=== PATIENT | male | born 1950 | race Caucasian/White ===

== ENCOUNTER 2021-11-22 11:29 | Inpatient (IN) ==
[2021-11-22] MEDS ORDERED: MoRPHine SULFATE 4 MG/ML 1 ML CARP\\VIAL IV PRN (11:43)
[2021-11-22] MEDS ORDERED: MoRPHine SULFATE 4 MG/ML 1 ML CARP\\VIAL IV STA (11:43)
[2021-11-22] MEDS ORDERED: ONDANSETRON INJ 2 MG/ML 2 ML VIAL IV STA (11:43)
[2021-11-22] MEDS ORDERED: SODIUM CHLORIDE 0.9% 500 ML IV STA (11:43)
--- NOTE | 2021-11-22 11:52 | Emergency Department Note ---
Impression & Plan Intertrochanteric fracture of right femur, Fall, Head injury ED Provider Note NAME: ANDRES MAC AGE: 71 SEX: M : 1950 ARRIVES VIA: Ambulance INFORMANT: Patient, EMS ED PROVIDER(S): Haim Bean DO CHIEF COMPLAINT: Hip pain HPI: The patient is a 71-year-old male who presented to the emergency department for an evaluation of hip pain. The patient states that he fell while going down his basement stairs. He landed onto his right side. He also states he struck the right side of his head. He denies having any loss of consciousness but does complain of a mild headache. He denies having any chest pain or difficulty breathing. He denies having any back pain. He was unable to stand and called 911 and presented to the emergency department via ambulance. He states the pain is moderate to severe especially with any movement of the right leg. He is never injured this hip before. He arrived via BLS. ROS: See above HPI for pertinent positives & negatives. A total of 10 systems reviewed and were otherwise negative. PAST MEDICAL HISTORY: See Below PAST SURGICAL HISTORY: See Below FAMILY HISTORY: See Below SOCIAL HISTORY: See Below HOME MEDICATIONS: See Below ALLERGIES: See Below VITALS: See Below PHYSICAL EXAMINATION: GENERAL: Patient is awake and alert. He is very anxious appearing and appears to be uncomfortable. EYES: The conjunctivae are clear. The pupils are round and reactive. EARS, NOSE, MOUTH AND THROAT: The nose is without any evidence of any deformity. Mucous membranes are moist. Tongue is midline. NECK: The neck is nontender and supple. RESPIRATORY: Normal respiratory effort is noted there is no evidence of wheezing rhonchi or rales CARDIOVASCULAR: Regular rate and rhythm noted there no murmurs rubs or gallops normal S1 normal S2. GASTROINTESTINAL: The abdomen is soft. Abdomen is nontender. BACK: No midline tenderness was appreciated. MUSCULOSKELETAL/EXTREMITIES: The right lower extremity is shortened slightly. The patient has severe pain with any range of motion testing of the right hip. There is no tenderness over the left lower extremity or the right knee or right ankle. SKIN: Skin is warm and dry. Pulses are symmetric in both feet. NEUROLOGIC: Patient is awake alert and oriented x3. MEDICAL DECISION MAKING: Patient is a 71-year-old male who presented to the emergency department for an evaluation after fall. The patient fell striking his right hip. The patient was able to stand. The patient also struck his head. I discussed the patient's laboratory and radiographic studies with him. He was found to have signs of an intertrochanteric right hip fracture. The patient also was treated with IV pain medication in the emergency department. He was reevaluated multiple times. I discussed the patient's condition with the on-call [facility] group. They have agreed to evaluate the patient in the emergency department for further management and disposition. Triage Nursing notes reviewed. Prior medical records reviewed Vital Signs: reviewed and remarkable for no significant abnormalities Differential diagnosis: Fracture, dislocation, contusion, intra-abdominal, pneumothorax, intrathoracic, intracranial, neurologic, compartment syndrome, rhabdomyolysis, as well as other pathologies. ER treatment provided: See below Diagnostics interpreted by me: ECG: EKG was obtained in the emergency department. My interpretation is sinus bradycardia 53 bpm. There is no ectopy. There was no acute ST segment abnormalities noted. This was compared to a tracing from November 27, 2011. No changes were noted. Cardiac Monitoring: An order was placed for continuous cardiac monitoring. The monitor shows a rate of 57 bpm with sinus bradycardia. Laboratory studies: As stated above and show below. Imaging studies: See below Consultation(s): I discussed this case with Nanette who was on site wastewater systems technician for the [facility] group Past Med/Surg History Medical History Abnormal CT scan, chest (11/25/11) Anxiety Bullous pemphigoid Chest pain Dyslipidemia Essential hypertension Focal glomerular sclerosis (Unknown) "Followed by Dr. Aguilar. " On 11/25/11 09:33 Moe Conklin wrote "Followed by Dr. Aguilar. " GERD (gastroesophageal reflux disease) Preproliferative diabetic retinopathy Surgical History Hx of colonoscopy Hx of toe surgery R great toe 2/2 to chain saw accident Family History Father Lung cancer Mother CHF (congestive heart failure) Social History Smoking Status: Current some day smoker Tobacco Type: Cigarettes and Pipe packs per day: 0.5; Years Smoked: 30; Smoking End Date: 06/2018 - quit cigarettes, still smokes cigars; Hx Alcohol Use: Yes Alcohol Intake Frequency: Monthly or Less Hx Substance Use: No Preferred Language: [place] Leonean Communication Ability: Effective marital status: Current Living Situation: Spouse Feels Safe at Home: Yes Allergies Allergies Allergy/AdvReac Type Severity Reaction Status Date / Time No Known Allergies Allergy Unverified 06/30/11 11:16 Home Meds Home Medications Medication Instructions Recorded Confirmed amlodipine 10 mg tablet 10 mg PO HS 11/22/21 11/22/21 metoprolol succinate 100 mg 100 mg PO HS 11/22/21 11/22/21 tablet,extended release 24 hr sertraline 100 mg tablet 200 mg PO HS 11/22/21 11/22/21 Results & Data (ED) Vital Signs Vital Signs - 24 hr 11/22/21 11:40 11/22/21 11:45 11/22/21 13:40 Temperature 36.6 C Temperature Source Oral Pulse Rate 53 L 51 L Pulse Rate [Apical] 57 L Pulse Rhythm Regular Respiratory Rate 18 14 17 Respiratory Effort / Characteristics Non-Labored Blood Pressure 149/72 H Blood Pressure [Left Arm] 139/101 H Blood Pressure Mean 97 Blood Pressure Mean [Left Arm] 113 Pulse Oximetry 95 95 92 Oxygen Delivery Method Room Air Room Air Room Air Sepsis Recent Fever Within 48 Hours No Sepsis New/Unexplained Change in Mental Status N/A Sepsis Action Taken by Nursing No Action Required 11/22/21 15:00 Temperature Temperature Source Pulse Rate Pulse Rate [Apical] 57 L Pulse Rhythm Respiratory Rate 18 Respiratory Effort / Characteristics Blood Pressure Blood Pressure [Left Arm] 133/64 Blood Pressure Mean Blood Pressure Mean [Left Arm] 87 Pulse Oximetry 93 Oxygen Delivery Method Sepsis Recent Fever Within 48 Hours Sepsis New/Unexplained Change in Mental Status Sepsis Action Taken by Residential Medications Current Medication List: was personally reviewed by me Laboratory Data Attestation: I reviewed the patient's lab results. Result diagrams: 11/22/21 11:46 11/22/21 11:46 Lab Results 11/22/21 11/22/21 11/22/21 Range/Units 11:46 11:46 11:46 WBC 17.02 H (4.8-10.8) K/ul RBC 4.75 (4.63-6.08) M/uL Hgb 14.6 (14.0-18.0) g/dl Hct 43.3 (40.1-51.0) % MCV 91.2 (80.0-100.0) fL MCH 30.7 (25.0-34.0) pg MCHC 33.7 (32.0-36.0) g/dL RDW Std Deviation 45.7 (36.4-46.3) fL RDW Coeff of Jennifer 13.5 (11.5-14.5) % Plt Count 253 (130-400) K/uL MPV 10.3 (9.4-12.4) fL Immature Gran % (Auto) 0.8 % Neut % (Auto) 77.8 % Lymph % (Auto) 9.6 % [place] % (Auto) 9.4 % Eos % (Auto) 1.5 % Baso % (Auto) 0.9 % Neut # (Auto) 13.24 H (1.4-6.5) K/uL Lymph # (Auto) 1.63 (1.2-3.4) K/uL [place] # (Auto) 1.60 H (0.24-0.82) K/uL Eos # (Auto) 0.25 (0-0.50) K/uL Baso # (Auto) 0.16 (0-0.2) K/uL Immature Gran # (Auto) 0.14 H (0.00-0.02) K/uL PT 10.9 (9.0-12.0) Seconds INR 1.0 (0.9-1.1) APTT 22.8 (21.0-31.0) Seconds PTT Ratio 0.8 Sodium 138 (136-145) mmol/L Potassium 4.7 (3.5-5.1) mmol/L Chloride 106 (98-107) mmol/L Carbon Dioxide 26 (21-32) mmol/L Anion Gap 6 (3-11) BUN 26 H (6-23) mg/dl Creatinine 1.46 H (0.6-1.4) mg/dl Est Cr Clr Drug Dosing 59.9 ml/min Est GFR ( Amer) 55.7 ml/min Est GFR (Non-Af Amer) 48.0 ml/min BUN/Creatinine Ratio 17.8 (10-20) Glucose 110 H (70-99(Fasting)) mg/dl Calcium 9.2 (8.5-10.1) mg/dl Total Bilirubin 0.6 (0.2-1.0) mg/dl AST 17 (13-39) U/L ALT 17 (7-52) U/L Alkaline Phosphatase 90 (34-104) U/L Troponin I High Sens 3.7 (0-20) pg/ml Total Protein 8.0 (6.0-8.3) gm/dl Albumin 4.3 (3.4-5.0) gm/dl Globulin 3.7 (2.5-4.0) gm/dl Albumin/Globulin Ratio 1.2 (0.9-2) Lipase 42 (11-82) U/L SARS-CoV-2, RNA, NAAT (NEGATIVE) 11/22/21 Range/Units 13:55 WBC (4.8-10.8) K/ul RBC (4.63-6.08) M/uL Hgb (14.0-18.0) g/dl Hct (40.1-51.0) % MCV (80.0-100.0) fL MCH (25.0-34.0) pg MCHC (32.0-36.0) g/dL RDW Std Deviation (36.4-46.3) fL RDW Coeff of Jennifer (11.5-14.5) % Plt Count (130-400) K/uL MPV (9.4-12.4) fL Immature Gran % (Auto) % Neut % (Auto) % Lymph % (Auto) % [place] % (Auto) % Eos % (Auto) % Baso % (Auto) % Neut # (Auto) (1.4-6.5) K/uL Lymph # (Auto) (1.2-3.4) K/uL [place] # (Auto) (0.24-0.82) K/uL Eos # (Auto) (0-0.50) K/uL Baso # (Auto) (0-0.2) K/uL Immature Gran # (Auto) (0.00-0.02) K/uL PT (9.0-12.0) Seconds INR (0.9-1.1) APTT (21.0-31.0) Seconds PTT Ratio Sodium (136-145) mmol/L Potassium (3.5-5.1) mmol/L Chloride (98-107) mmol/L Carbon Dioxide (21-32) mmol/L Anion Gap (3-11) BUN (6-23) mg/dl Creatinine (0.6-1.4) mg/dl Est Cr Clr Drug Dosing ml/min Est GFR ( Amer) ml/min Est GFR (Non-Af Amer) ml/min BUN/Creatinine Ratio (10-20) Glucose (70-99(Fasting)) mg/dl Calcium (8.5-10.1) mg/dl Total Bilirubin (0.2-1.0) mg/dl AST (13-39) U/L ALT (7-52) U/L Alkaline Phosphatase (34-104) U/L Troponin I High Sens (0-20) pg/ml Total Protein (6.0-8.3) gm/dl Albumin (3.4-5.0) gm/dl Globulin (2.5-4.0) gm/dl Albumin/Globulin Ratio (0.9-2) Lipase (11-82) U/L SARS-CoV-2, RNA, NAAT NEGATIVE (NEGATIVE) Administered Medications Sodium Chloride (Nss 1000ml) 1,000 mls @ 100 mls/hr IV .Q10H XAVIER Stop: 11/23/21 00:59 Last Admin: 11/22/21 15:45 Dose: 100 mls/hr Documented By: ML Morphine Sulfate (Morphine Sulfate 4 Mg/Ml 1 Ml Carp\\Vial) 4 mg IV Q30M PRN PRN Reason: Pain Stop: 12/06/21 11:42 Last Admin: 11/22/21 12:32 Dose: 4 mg Documented By: ML Discontinued Medications Sodium Chloride (Nss) 500 mls @ 999 mls/hr IV .Q31M STA Stop: 11/22/21 12:13 Last Infusion: 11/22/21 12:29 Dose: 0 mls/hr Documented By: Admin: 11/22/21 11:57 Dose: 999 mls/hr Documented By: ML Acetaminophen (Ofirmev) 1,000 mg in 100 mls @ 400 mls/hr IV NOW STA Stop: 11/22/21 14:46 Last Infusion: 11/22/21 14:56 Dose: 0 mls/hr Documented By: Admin: 11/22/21 14:41 Dose: 400 mls/hr Documented By: ML Morphine Sulfate (Morphine Sulfate 4 Mg/Ml 1 Ml Carp\\Vial) 4 mg IV NOW STA Stop: 11/22/21 11:44 Last Admin: 11/22/21 11:58 Dose: 4 mg Documented By: ML Ondansetron HCl (Ondansetron Inj 2 Mg/Ml 2 Ml Vial) 4 mg IV NOW STA Stop: 11/22/21 11:44 Last Admin: 11/22/21 11:57 Dose: 4 mg Documented By: ML Imaging Data Radiologist's Impression: Cervical Spine CT 11/22/21 11:[address] DOSE: 661.61 mGycm HISTORY: Fall. Neck pain. TECHNIQUE: Multiaxial CT images of the cervical spine were performed and reformatted in the sagittal and coronal plane without the use of contrast. A dose lowering technique was utilized adhering to the principles of ALARA. COMPARISON: Cervical spine CT 11/26/2011. FINDINGS: No fractures. No subluxation. Prevertebral soft tissues and the C1-C2 interval are intact. No pneumothorax. Severe degenerative disc disease from C4 through C7. IMPRESSION: No fractures within the cervical spine. ACT 112: Negative or not required by law. Electronically signed by: Arthur Marshall M.D. 11/22/2021 12:40 PM Chest X-Ray 11/22/21 11:43 SINGLE VIEW CHEST CLINICAL HISTORY: Fall. Right hip fracture. Atypical chest pain. FINDINGS: An AP, portable, supine chest radiograph is compared to study dated 11/24/2011. The heart is mildly enlarged noting atherosclerotic calcification of the thoracic aorta. The pulmonary vasculature is noncongested. There is mild bibasilar scarring/atelectasis. No airspace consolidation or large pleural effusion is identified. No pneumothorax is seen. The skeletal structures are osteopenic. The bony thorax is grossly intact. IMPRESSION: Mild cardiomegaly with no acute cardiopulmonary abnormality identif ied. ACT 112: Negative or not required by law. Electronically signed by: Tio Hunt M.D. 11/22/2021 1:[address] 11/22/21 11:43 CT head/brain wo con CLINICAL HISTORY: 71 years-old Male with fall. Acute head trauma status post fall TECHNIQUE: Multiple axial CT images of the head were obtained without contrast. A dose lowering technique was utilized adhering to the principles of ALARA. CT DOSE: 823.94 mGycm COMPARISON: CT cervical spine of same day, head CT 06/30/2011 FINDINGS: No acute intracranial hemorrhage, midline shift, intracranial mass, hydrocepha radha, territorial ischemia or abnormal extra-axial collection. Mild involutional changes. Senescent calcifications of the basal ganglia. The calvarium is intact. Trace right mastoid effusion. Left mastoid air cells are clear. Moderate mucosal thickening of the ethmoid air cells with mild mucosal thickening of the right maxillary sinus. Unremarkable soft tissues and orbits. IMPRESSION: No acute intracranial abnormality or calvarial fracture. ACT 112: Negative or not required by law. The above report was generated using voice recognition software. It may contain grammatical, syntax or spelling errors. Electronically signed by: Connor Sweet M.D. 11/22/2021 12:32 PM Hip/Pelvis X-Ray 11/22/21 11:43 XR hip RT 2V w pelvis HISTORY: 71 years-old Male fall acute pelvic pain status post fall COMPARISON: None TECHNIQUE: Supine AP view of the pelvis with 2 views of the right hip FINDINGS: Moderate osteoarthritis of the hips. Limited exam secondary to positioning. There is an acute intertrochanteric fracture of the right proximal femur with fracture displacement/separation measuring up to approximately 6 mm. No dislocation or avascular necrosis. IMPRESSION: Acute nondisplaced intertrochanteric fracture of the right femur. ACT 112: Negative or not required by law. The above report was generated using voice recognition software. It may contain grammatical, syntax or spelling errors. Electronically signed by: Connor Sweet M.D. 11/22/2021 1:51 PM Discharge Plan Visit Data Chief Complaint: Hip Pain Stated Complaint: RT. HIP/GROIN PAIN (MISSED LAST STEP) ED Provider: Haim Bean Discharge Problem: Intertrochanteric fracture of right femur, Fall, Head injury Patient Disposition: Being Evaluated by Hospitalist Forms Stand Alone Forms: [employer] Prescriptions Prescriptions: No Action metoprolol succinate 100 mg tablet extended release 24 hr 100 mg PO HS sertraline 100 mg tablet 200 mg PO HS amlodipine 10 mg tablet 10 mg PO HS Referrals Referrals: Silvia Kirk, [Outside Practitioners] -
[2021-11-22 11:59] LABS: Basophils # (auto) 0.16 K/uL (0-0.2); Basophils % (auto) 0.9 %; Eosinophils # (auto) 0.25 K/uL (0-0.50); Eosinophils % (auto) 1.5 %; Hematocrit (blood only) 43.3 % (40.1-51.0); Hemoglobin 14.6 g/dl (14.0-18.0); Immature Granulocytes # (auto) 0.14 K/uL (0.00-0.02); Immature Granulocytes % (auto) 0.8 %; Lymphocytes # (auto) 1.63 K/uL (1.2-3.4); Lymphocytes % (auto) 9.6 %; Mean Corpuscular Hemoglobin 30.7 pg (25.0-34.0); Mean Corpuscular Hgb Conc 33.7 g/dL (32.0-36.0); Mean Corpuscular Volume 91.2 fL (80.0-100.0); Mean Platelet Volume 10.3 fL (9.4-12.4); Monocytes % (auto) 9.4 %; Neutrophils # (auto) 13.24 K/uL (1.4-6.5); Neutrophils % (auto) 77.8 %; Platelet Count 253 K/uL (130-400); RDW Coefficient of Variation 13.5 % (11.5-14.5); RDW Standard Deviation 45.7 fL (36.4-46.3); Red Blood Count 4.75 M/uL (4.63-6.08); White Blood Count 17.02 K/ul (4.8-10.8)
[2021-11-22 12:12] LABS: Partial Thromboplastin Ratio 0.8; Partial Thromboplastin Time 22.8 Seconds (21.0-31.0); Prothrombin Time 10.9 Seconds (9.0-12.0)
[2021-11-22 12:23] LABS: Albumin Globulin Ratio 1.2 (0.9-2); Albumin Level 4.3 gm/dl (3.4-5.0); BUN Creatinine Ratio 17.8 (10-20); Bilirubin,Total 0.6 mg/dl (0.2-1.0); Calcium 9.2 mg/dl (8.5-10.1); Creatinine Clr Calc Pharmacy 59.9 ml/min; Est GFR (African American) 55.7 ml/min; Globulin 3.7 gm/dl (2.5-4.0); Potassium 4.7 mmol/L (3.5-5.1); Troponin I High Sensitivity 3.7 pg/ml (0-20)
--- NOTE | 2021-11-22 12:34 | CT Scan Report ---
CT head/brain wo con CLINICAL HISTORY: 71 years-old Male with fall. Acute head trauma status post fall TECHNIQUE: Multiple axial CT images of the head were obtained without contrast. A dose lowering tech nique was utilized adhering to the principles of ALARA. CT DOSE: 823.94 mGycm COMPARISON: CT cervical spine of same day, head CT 06/30/2011 FINDINGS: No acute intracranial hemorrhage, midline shift, intracranial mass, hydrocephalus, territorial ischem ia or abnormal extra-axial collection. Mild involutional changes. Senescent calcifications of the bas al ganglia. The calvarium is intact. Trace right mastoid effusion. Left mastoid air cells are clear. Moderate mu cosal thickening of the ethmoid air cells with mild mucosal thickening of the right maxillary sinus. Unremarkable soft tissues and orbits. IMPRESSION: No acute intracranial abnormality or calvarial fracture. ACT 112: Negative or not required by law. The above report was generated using voice recognition software. It may contain grammatical, syntax o r spelling errors. Electronically signed by: Connor Sewet M.D. 11/22/2021 12:32 PM
--- NOTE | 2021-11-22 12:41 | CT Scan Report ---
CERVICAL SPINE CT CT DOSE: 661.61 mGycm HISTORY: Fall. Neck pain. TECHNIQUE: Multiaxial CT images of the cervical spine were performed and reformatted in the sagittal and coronal plane without the use of contrast. A dose lowering technique was utilized adhering to th e principles of ALARA. COMPARISON: Cervical spine CT 11/26/2011. FINDINGS: No fractures. No subluxation. Prevertebral soft tissues and the C1-C2 interval are intact. No pneumothorax. Severe degenerative disc disease from C4 through C7. IMPRESSION: No fractures within the cervical spine. ACT 112: Negative or not required by law. Electronically signed by: Arthur Marshall M.D. 11/22/2021 12:40 PM
--- NOTE | 2021-11-22 13:54 | XRay Report ---
XR hip RT 2V w pelvis HISTORY: 71 years-old Male fall acute pelvic pain status post fall COMPARISON: None TECHNIQUE: Supine AP view of the pelvis with 2 views of the right hip FINDINGS: Moderate osteoarthritis of the hips. Limited exam secondary to positioning. There is an acute intertr ochanteric fracture of the right proximal femur with fracture displacement/separation measuring up to approximately 6 mm. No dislocation or avascular necrosis. IMPRESSION: Acute nondisplaced intertrochanteric fracture of the right femur. ACT 112: Negative or not required by law. The above report was generated using voice recognition software. It may contain grammatical, syntax o r spelling errors. Electronically signed by: Connor Sweet M.D. 11/22/2021 1:51 PM
--- NOTE | 2021-11-22 13:56 | XRay Report ---
SINGLE VIEW CHEST CLINICAL HISTORY: Fall. Right hip fracture. Atypical chest pain. FINDINGS: An AP, portable, supine chest radiograph is compared to study dated 11/24/2011. The heart is mildly enlarged noting atherosclerotic calcification of the thoracic aorta. The pulmonary vasculatur e is noncongested. There is mild bibasilar scarring/atelectasis. No airspace consolidation or large p leural effusion is identified. No pneumothorax is seen. The skeletal structures are osteopenic. The b taylor thorax is grossly intact. IMPRESSION: Mild cardiomegaly with no acute cardiopulmonary abnormality identified. ACT 112: Negative or not required by law. Electronically signed by: Tio Hunt M.D. 11/22/2021 1:55 PM
[2021-11-22] MEDS ORDERED: ACETAMINOPHEN 1,000 MG/100 ML VIAL IV STA (14:32)
--- NOTE | 2021-11-22 14:50 | History & Physical Report ---
Date of Service November 22, 2021 Assessment & Plan (1) Fall: (2) Intertrochanteric fracture of right femur: (3) Essential hypertension: (4) Focal glomerular sclerosis: Plan This is a 71-year-old male who has a significant past medical history of HTN, HLD, prediabetes, GERD, focal segmental clavicular sclerosis, CKD stage III, bullous pemphigus and anxiety who presents to ED after sustaining a fall at home. Hip/Pelvis Xray: IMPRESSION: Acute nondisplaced intertrochanteric fracture of the right femur. Mechanical Fall Intertrochanteric fx of R femur, nondisplaced, closed admit to med/surg consult [facility] - discussed with Chad Tanner PA-C keep NPO until surgical time decided bed rest SCDS IV morphine severe pain, oxy IR moderate pain pre op antibiotics ordered ekg reviewed, order CXR pt able to perform ~ 4 mets of activity no prior hx of CAD place on NSS 100cc/hr while NPO HTN bp controlled on amlodipine and metoprolol CKD 3 Focal Glomerular Sclerosis baseline cr 1.2-1.3 bun/cr 26 and 1.46 has not followed up with nephro in few years, appears pt follows with [facility] neph[facility] recommend regular follow up with nephro avoid nephrotoxic agents especially nsaids Pre DM last a1c 6.0 10/27/20 obtain a1c in a.m Anxiety continue zoloft Dvt ppx: SCDS for now until surgery timing decided, recommend initiate chemical prophylaxis when able Dispo: Med/surg PCP: Anibal Mckeon Full Code Pt was seen and examined in collaboration with Dr. Alvarez, please see addendum History of Present Illness Chief Complaint: Fell prior to arrival Primary Care Provider: Anibal Mckeon, DO This is a 71-year-old male who has a significant past medical history of HTN, HLD, prediabetes, GERD, focal segmental clavicular sclerosis, CKD stage III, bullous pemphigus and anxiety who presents to ED after sustaining a fall at home. Patient was going down his basement when he missed the last step and fell on his right side striking the back of his head. He was able to crawl back up the steps using his arms. Once he got to the top of the steps he was unable to get up and ambulate. He complains of significant right hip pain currently a 3 out of 10. Denies any syncopal event, presyncope, lightheadedness or dizziness preceding the event. He further denies any recent illness, fever, chills, sweats, lightheadedness, dizziness, chest pain, shortness of breath, nausea, vomiting or abdominal pain. He is able to ambulate a flight of steps without getting chest pain or short of breath at baseline. Significance he does have history of high blood pressure controlled on amlodipine and metoprolol. He also has history of prediabetes with last A1c being 6.0 on 10/27/2020. His is at bedside. In ER patient remained hemodynamically stable. He underwent hip and pelvic x-ray which revealed a closed right intertrochanteric nondisplaced femur fracture. He also underwent CT head and neck which was unrevealing. Lab work significant for leukocytosis at 17 K and BUN 26, creatinine 1.46. He did not eat anything today. He did have black coffee for breakfast around 7-8am. Allergies Allergy/AdvReac Type Severity Reaction Status Date / Time No Known Allergies Allergy Unverified 06/30/11 11:16 Home Medications Medication Instructions Recorded Confirmed Type amlodipine 10 mg tablet 10 mg PO HS 11/22/21 11/22/21 History metoprolol succinate 100 mg 100 mg PO HS 11/22/21 11/22/21 History tablet,extended release 24 hr sertraline 100 mg tablet 200 mg PO HS 11/22/21 11/22/21 History Past Med/Surg History Medical History Abnormal CT scan, chest (11/25/11) Anxiety Bullous pemphigoid Chest pain Dyslipidemia Essential hypertension Focal glomerular sclerosis (Unknown) "Followed by Dr. Aguilar. " On 11/25/11 09:33 Moe Conklin wrote "Followed by Dr. Aguilar. " GERD (gastroesophageal reflux disease) Preproliferative diabetic retinopathy Surgical History Hx of colonoscopy Hx of toe surgery R great toe 2/2 to chain saw accident Family History Father Lung cancer Mother CHF (congestive heart failure) Social History Smoking Status: Current some day smoker Tobacco Type: Cigarettes and Pipe packs per day: 0.5; Years Smoked: 30; Smoking End Date: 06/2018 - quit cigarettes, still smokes cigars; Hx Alcohol Use: Yes Alcohol Intake Frequency: Monthly or Less Hx Substance Use: No Preferred Language: Senegalese Communication Ability: Effective marital status: Current Living Situation: Spouse Feels Safe at Home: Yes Review of Systems Review of Systems: All systems reviewed & are unremarkable except as noted in HPI & below Physical Exam Physical Exam: Please refer to Dr. Alvarez addendum for physical exam findings Results & Data Results & Data ([facility]) Vital Signs (Past 12 Hours) Vital Signs Temp Pulse Pulse Resp BP BP Pulse Ox 11/22/21 13:40 57 L 17 139/101 H 92 11/22/21 11:45 51 L 14 95 11/22/21 11:40 36.6 C 53 L 18 149/72 H 95 O2 Del Method 11/22/21 13:40 Room Air 11/22/21 11:45 Room Air 11/22/21 11:40 Room Air Diagnostic Findings Cervical Spine CT 11/22/21 11:[address] DOSE: 661.61 mGycm HISTORY: Fall. Neck pain. TECHNIQUE: Multiaxial CT images of the cervical spine were performed and reformatted in the sagittal and coronal plane without the use of contrast. A dose lowering technique was utilized adhering to the principles of ALARA. COMPARISON: Cervical spine CT 11/26/2011. FINDINGS: No fractures. No subluxation. Prevertebral soft tissues and the C1-C2 interval are intact. No pneumothorax. Severe degenerative disc disease from C4 through C7. IMPRESSION: No fractures within the cervical spine. ACT 112: Negative or not required by law. Electronically signed by: Arthur Marshall M.D. 11/22/2021 12:40 PM Chest X-Ray 11/22/21 11:43 SINGLE VIEW CHEST CLINICAL HISTORY: Fall. Right hip fracture. Atypical chest pain. FINDINGS: An AP, portable, supine chest radiograph is compared to study dated 11/24/2011. The heart is mildly enlarged noting atherosclerotic calcification of the thoracic aorta. The pulmonary vasculature is noncongested. There is mild bibasilar scarring/atelectasis. No airspace consolidation or large pleural effusion is identified. No pneumothorax is seen. The skeletal structures are osteopenic. The bony thorax is grossly intact. IMPRESSION: Mild cardiomegaly with no acute cardiopulmonary abnormality identified. ACT 112: Negative or not required by law. Electronically signed by: Tio Hunt M.D. 11/22/2021 1:[address] 11/22/21 11:43 CT head/brain wo con CLINICAL HISTORY: 71 years-old Male with fall. Acute head trauma status post fall TECHNIQUE: Multiple axial CT images of the head were obtained without contrast. A dose lowering technique was utilized adhering to the principles of ALARA. CT DOSE: 823.94 mGycm COMPARISON: CT cervical spine of same day, head CT 06/30/2011 FINDINGS: No acute intracranial hemorrhage, midline shift, intracranial mass, hydrocephalus, territorial ischemia or abnormal extra-axial collection. Mild involutional changes. Senescent calcifications of the basal ganglia. The calvarium is intact. Trace right mastoid effusion. Left mastoid air cells are clear. Moderate mucosal thickening of the ethmoid air cells with mild mucosal thickening of the right maxillary sinus. Unremarkable soft tissues and orbits. IMPRESSION: No acute intracranial abnormality or calvarial fracture. ACT 112: Negative or not required by law. The above report was generated using voice recognition software. It may contain grammatical, syntax or spelling errors. Electronically signed by: Connor Sweet M.D. 11/22/2021 12:32 PM Hip/Pelvis X-Ray 11/22/21 11:43 XR hip RT 2V w pelvis HISTORY: 71 years-old Male fall acute pelvic pain status post fall COMPARISON: None TECHNIQUE: Supine AP view of the pelvis with 2 views of the right hip FINDINGS: Moderate osteoarthritis of the hips. Limited exam secondary to positioning. There is an acute intertrochanteric fracture of the right proximal femur with fracture displacement/separation measuring up to approximately 6 mm. No dislocation or avascular necrosis. IMPRESSION: Acute nondisplaced intertrochanteric fracture of the right femur. ACT 112: Negative or not required by law. The above report was generated using voice recognition software. It may contain grammatical, syntax or spelling errors. Electronically signed by: Connor Sweet M.D. 11/22/2021 1:51 PM Medications Administered Medication List Acetaminophen (Ofirmev) 1,000 mg in 100 mls @ 400 mls/hr IV NOW STA Stop: 11/22/21 14:46 Last Admin: 11/22/21 14:41 Dose: 400 mls/hr Documented By: ML Morphine Sulfate (Morphine Sulfate 4 Mg/Ml 1 Ml Carp\\Vial) 4 mg IV Q30M PRN PRN Reason: Pain Stop: 12/06/21 11:42 Last Admin: 11/22/21 12:32 Dose: 4 mg Documented By: ML Discontinued Medications Sodium Chloride (Nss) 500 mls @ 999 mls/hr IV .Q31M STA Stop: 11/22/21 12:13 Last Infusion: 11/22/21 12:29 Dose: 0 mls/hr Documented By: Admin: 11/22/21 11:57 Dose: 999 mls/hr Documented By: ML Morphine Sulfate (Morphine Sulfate 4 Mg/Ml 1 Ml CarpVial) 4 mg IV NOW STA Stop: 11/22/21 11:44 Last Admin: 11/22/21 11:58 Dose: 4 mg Documented By: ML Ondansetron HCl (Ondansetron Inj 2 Mg/Ml 2 Ml Vial) 4 mg IV NOW STA Stop: 11/22/21 11:44 Last Admin: 11/22/21 11:57 Dose: 4 mg Documented By: ML ECG Rate (beats per minute): 53 Rhythm: sinus bradycardia Additional Comments: qtc 453ms COVID-19 Results Results COVID-19 Adm Lab Results: RBC 4.75 M/uL (4.63-6.08) 11/22/21 WBC 17.02 K/ul (4.8-10.8) H 11/22/21 Hgb 14.6 g/dl (14.0-18.0) 11/22/21 Hct 43.3 % (40.1-51.0) 11/22/21 Plt Count 253 K/uL (130-400) 11/22/21 Neutrophils (%) (Auto) 77.8 % 11/22/21 Lymphocytes (%) (Auto) 9.6 % 11/22/21 Monocytes # (Auto) 1.60 K/uL (0.24-0.82) H 11/22/21 Eosinophils # (Auto) 0.25 K/uL (0-0.50) 11/22/21 Immature Granulocyte % (Auto) 0.8 % 11/22/21 Neutrophils # (Auto) 13.24 K/uL (1.4-6.5) H 11/22/21 Lymphocytes # (Auto) 1.63 K/uL (1.2-3.4) 11/22/21 Monocytes # (Auto) 1.60 K/uL (0.24-0.82) H 11/22/21 Eosinophils # (Auto) 0.25 K/uL (0-0.50) 11/22/21 Basophils # (Auto) 0.16 K/uL (0-0.2) 11/22/21 Immature Granulocyte # (Auto) 0.14 K/uL (0.00-0.02) H 11/22 Na 138 mmol/L (136-145) 11/22/21 K 4.7 mmol/L (3.5-5.1) 11/22/21 Cl 106 mmol/L (98-107) 11/22/21 CO2 26 mmol/L (21-32) 11/22/21 Anion Gap 6 (3-11) 11/22/21 BUN 26 mg/dl (6-23) H 11/22/21 Creatinine 1.46 mg/dl (0.6-1.4) H 11/22/21 BUN/Creatinine Ratio 17.8 (10-20) 11/22/21 Glucose Level 110 mg/dl (70-99(Fasting)) H 11/22/21 Ca 9.2 mg/dl (8.5-10.1) 11/22/21 Total Bilirubin 0.6 mg/dl (0.2-1.0) 11/22/21 AST/SGOT 17 U/L (13-39) 11/22/21 ALT/SGPT 17 U/L (7-52) 11/22/21 Alkaline Phosphatase 90 U/L (34-104) 11/22/21 Total Protein 8.0 gm/dl (6.0-8.3) 11/22/21 Albumin 4.3 gm/dl (3.4-5.0) 11/22/21 Globulin 3.7 gm/dl (2.5-4.0) 11/22/21 Albumin/Globulin Ratio 1.2 (0.9-2) 11/22/21 PTT 22.8 Seconds (21.0-31.0) 11/22/21 INR 1.0 (0.9-1.1) 11/22/21 SARS-CoV-2, RNA, NAAT NEGATIVE (NEGATIVE) 11/22/21 Chest X-Ray 11/22/21 Code Status & VTE Plan Code Status FULL CODE VTE Prophylaxis Plan VTE Prophylaxis will be ordered: Yes Supervising Physician Co-Signing Physician Notes Patient is a 71-year-old male with history of CKD, bullous pemphigus, hypertension, focal segmental glomerulosclerosis and other medical problems presents with history of mechanical fall missing a step while going down his basement. Patient admits to falling on the right side of his hip and hitting hi s head but denies any loss of consciousness. Patient states having right hip pain secondary to the fall. Please review HPI for complete details of presentation. Blood work showed WBC 17, BUN 26, creatinine 1.46, glucose 110 but otherwise within normal limits. Imaging studies reviewed, showed acute nondisplaced intertrochanteric fracture of the right femur. Physical Exam: Vitals signs as noted above General Appearance:Obese, no apparent distress Head: normocephalic, Atraumatic Eyes: normal inspection, EOMI Neck: supple, Trachea midline Respiratory/Chest: Normal breath sounds, CTA, No accessory muscle use Cardiovascular: S1, S2, No murmur, Bradycardia Abdomen/GI:Soft, Non tender, Bowel sounds present Extremities/Musculoskeletal:normal inspection, no edema, right lower extremity externally rotated, shortened, decreased range of movement secondary to pain, right hip mildly tender. Neurologic/Psych:AAOX3, grossly no focal neurological deficits Skin: normal color, warm Intertrochanteric fracture of right femur Mechanical fall Leukocytosis likely reactive Pain control Fall precautions Orthopedics consulted Bowel regimen to prevent constipation Monitor for postop anemia Prediabetes Focal glomerulosclerosis Obtain HbA1c Monitor renal function I personally reviewed the record. Patient is interviewed and examined at bedside. Patient's care is coordinated with Nanette Florez PA-C. Please refer to the documentation above for details of patient's presentation and for discussion of other issues.
[2021-11-22] MEDS ORDERED: SODIUM CHLORIDE 0.9% 1000ML 1,000 ML IV SCH (15:00)
--- NOTE | 2021-11-22 15:18 | Orthopedic Consultation ---
Date of Consultation November 22, 2021 Assessment & Plan (1) Intertrochanteric fracture of right femur: Patient's x-rays reviewed. Patient will require a right trochanteric femoral nailing. I have discussed this with the patient and his in detail. Plan for OR tomorrow afternoon. History of Present Illness Reason for Consultation: Right Intertrochanteric hip fracture History of Present Illness 71-year-old male with past medical history of HTN, HLD, prediabetes, GERD, focal segmental clavicular sclerosis, CKD stage III, bullous pemphigus states that he was going down some steps today. He ended up missing the last step and lost his balance. He fell onto his right side and had immediate pain in his right hip and groin. He had difficulty ambulating secondary to pain and he was brought to the emergency room. He was seen by the staff and x-rays were taken. It was found that he had a right intertrochanteric hip fracture. He was admitted by the [facility] service and we have been asked to take care of his hip fracture. Currently he is awake and alert. No other complaints than right hip pain at this time. Denies any shortness of breath, chest pain, l ightheadedness prior to or after the fall. Denies loss of consciousness at the time of the fall. Allergies Allergy/AdvReac Type Severity Reaction Status Date / Time No Known Allergies Allergy Unverified 06/30/11 11:16 Home Medications Medication Instructions Recorded Confirmed Type amlodipine 10 mg tablet 10 mg PO HS 11/22/21 11/22/21 History metoprolol succinate 100 mg 100 mg PO HS 11/22/21 11/22/21 History tablet,extended release 24 hr sertraline 100 mg tablet 200 mg PO HS 11/22/21 11/22/21 History Patient History Medical History Abnormal CT scan, chest (11/25/11) Anxiety Bullous pemphigoid Chest pain Dyslipidemia Essential hypertension Focal glomerular sclerosis (Unknown) "Followed by Dr. Aguilar. " On 11/25/11 09:33 Moe Conklin wrote "Followed by Dr. Aguilar. " GERD (gastroesophageal reflux disease) Preproliferative diabetic retinopathy Surgical History Hx of colonoscopy Hx of toe surgery R great toe 2/2 to chain saw accident Family History Father Lung cancer Mother CHF (congestive heart failure) Social History Smoking Status: Current some day smoker Tobacco Type: Cigarettes and Pipe packs per day: 0.5; Years Smoked: 30; Smoking End Date: 06/2018 - quit cigarettes, still smokes cigars; Do You Dip or Chew Tobacco: No; Hx Alcohol Use: Yes Alcohol type: beer Alcohol Intake Frequency: Monthly or Less Hx Substance Use: No Preferred Language: Citizen Of [place] Communication Ability: Effective 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 No acute distress, pleasant cooperative, alert and oriented x3. On examination, the patient is lying in bed. His right lower extremity is shortened and externally rotated compared to the left. No attempts were made to move the right hip secondary to fracture. Right knee is nontender on palpation and he denies pain at this time. He has good range of motion of his right ankle at this time without discomfort. Left lower extremity is unaffected and he has good range of motion of the left hip, knee, and ankle. Upper extremities are unaffected at this time. He is nontender at the shoulders, elbows, and wrists and range of motion is within normal limits. Distal pulses are equal bilaterally of the upper and lower extremities. There is no gross motor or sensory loss seen at this time. He denies any cervical, thoracic, low back pain. Results & Data ([facility]) Vital Signs (Past 12 Hours) Vital Signs Temp Pulse Pulse Resp BP BP Pulse Ox 11/22/21 15:00 57 L 18 133/64 93 11/22/21 13:40 57 L 17 139/101 H 92 11/22/21 11:45 51 L 14 95 11/22/21 11:40 36.6 C 53 L 18 149/72 H 95 O2 Del Method 11/22/21 15:00 11/22/21 13:40 Room Air 11/22/21 11:45 Room Air 11/22/21 11:40 Room Air Diagnostic Findings Patient:ANDRES MAC Admit Date:11/22/21 MR#:[id number] Address1:[address] [place], [place] [address]GEOVANNY Acct ID:[id number] Address2: [address] Date:1950 [facility] Zip:[place] [address] Age:71 Location:ED Sex:M Room/Bed: Att Phy: Diagnosis:RT. HIP/GROIN PAIN (MISSED LAST STEP) Sherrie Phy:Anibal Mckeon DO Service Date:11/22/21 [facility] Phy: Interpreting Phy:Connor SweetAdmit Phy: Ordering Phy:Haim Bean DO cc: ~ XR hip RT 2V w pelvis HISTORY: 71 years-old Male fall acute pelvic pain status post fall COMPARISON: None TECHNIQUE: Supine AP view of the pelvis with 2 views of the right hip FINDINGS: Moderate osteoarthritis of the hips. Limited exam secondary to positioning. There is an acute intertrochanteric fracture of the right proximal femur with fracture displacement/separation measuring up to approximately 6 mm. No dislocation or avascular necrosis. IMPRESSION: Acute nondisplaced intertrochanteric fracture of the right femur. ACT 112: Negative or not required by law. The above report was generated using voice recognition software. It may contain grammatical, syntax or spelling errors. Electronically signed by: Connor Sweet M.D. 11/22/2021 1:51 PM
[2021-11-22] MEDS ORDERED: MoRPHine SULFATE 2 MG/ML CARP IV PRN (17:04)
[2021-11-22] MEDS ORDERED: MAGNESIUM HYDROXIDE SUSP 30 ML UDC PO PRN (17:04)
[2021-11-22] MEDS ORDERED: ALUMINUM/MAGNESIUM SUSP 30 ML UDC PO PRN (17:04)
[2021-11-22] MEDS ORDERED: PROMETHAZINE HCL 12.5 MG in SODIUM CHLORIDE 0.9% 50 ML IV PRN (17:04)
[2021-11-22] MEDS ORDERED: bisacodyL 10 MG SUPP PR PRN (17:04)
[2021-11-22] MEDS ORDERED: NALOXONE HCL 0.4 MG/1 ML VIAL/CARP IV PRN (17:04)
[2021-11-22] MEDS ORDERED: POLYETHYLENE (MIRALAX) 17 GM PACK PO PRN (17:04)
--- NOTE | 2021-11-22 17:25 | Electrocardiogram Report ---
Test Reason : Blood Pressure : / mmHG Vent. Rate : 053 BPM Atrial Rate : 053 BPM P-R Int : 182 ms QRS Dur : 090 ms QT Int : 482 ms P-R-T Axes : 012 -14 018 degrees QTc Int : 452 ms Sinus bradycardia Otherwise normal ECG When compared with ECG of 27-NOV-2011 06:39, QT has lengthened Confirmed by Harry Liriano ([id number]) on 11/22/2021 5:25:21 PM Referred By: REFERRED SELF Confirmed By:Stanton Liriano
--- NOTE | 2021-11-22 17:43 | Anesthesiology Consultation ---
Date of Service November 22, 2021 Assessment & Plan Chart Review Chart Review: Acceptable Risk for Surgery Consults Requested none History Surgery Operation Date: 11/23/21 11:20 Proposed Procedures p Intramedullary Adal Femur - Christopher Neal DO Height/Weight Height: 5 ft 10 in Weight: 115.2 kg Allergies Allergy/AdvReac Type Severity Reaction Status Date / Time No Known Allergies Allergy Unverified 06/30/11 11:16 Medications Home Medications Medication Instructions Recorded Confirmed Last Taken amlodipine 10 mg tablet 10 mg PO HS 11/22/21 11/22/21 Unknown metoprolol succinate 100 mg 100 mg PO HS 11/22/21 11/22/21 Unknown tablet,extended release 24 hr sertraline 100 mg tablet 200 mg PO HS 11/22/21 11/22/21 Unknown Active Medications Generic Name Dose Route Start Last Admin Trade Name Freq PRN Reason Stop Dose Admin Sodium Chloride 1,000 mls @ 100 mls/hr 11/22/21 15:00 11/22/21 15:45 Nss 1000ml IV 11/23/21 00:59 100 mls/hr .Q10H XAVIER Administration Past Medical History Medical History Abnormal CT scan, chest (11/25/11) Anxiety Bullous pemphigoid Chest pain Dyslipidemia Essential hypertension Focal glomerular sclerosis (Unknown) "Followed by Dr. Aguilar. " On 11/25/11 09:33 Moe Conklin wrote "Followed by Dr. Aguliar. " GERD (gastroesophageal reflux disease) Preproliferative diabetic retinopathy Past Family History Family History Father Lung cancer Mother CHF (congestive heart failure) Past Surgical History Surgical History Hx of colonoscopy Hx of toe surgery R great toe 2/2 to chain saw accident Social History Smoking Status: Current some day smoker Smoking End Date: 06/2018 - quit cigarettes, still smokes cigars Hx Alcohol Use: Yes Hx Substance Use: No Physical Exam Vital Signs Last Vital Signs Temp 36.6 C 11/22/21 11:40 Pulse 55 L 11/22/21 16:34 Resp 20 11/22/21 16:34 BP 138/75 11/22/21 16:34 Pulse Ox 94 11/22/21 16:34 O2 Del Method 11/22/21 16:34 Testing Laboratory Results 11/22/21 11:46 11/22/21 11:46 PT 10.9 Seconds (9.0-12.0) 11/22/21 11:46 INR 1.0 (0.9-1.1) 11/22/21 11:46 APTT 22.8 Seconds (21.0-31.0) 11/22/21 11:46
[2021-11-22] MEDS: oxyCODONE HCL IR 5 MG TAB (IMMEDIATE RELEASE) PO PRN (21:51)
[2021-11-22] MEDS: DOCUSATE SODIUM/SENNA 50/8.6MG TAB PO SCH (21:53)
[2021-11-22] MEDS: METOPROLOL SUCC 50MG EXT REL TAB PO SCH (21:53)
[2021-11-22] MEDS: amLODIPine BESYLATE 5 MG TAB PO SCH (21:54)
[2021-11-22] MEDS: SERTRALINE HCL 100 MG TABLET PO SCH (21:54)
[2021-11-22] MEDS ORDERED: ACETAMINOPHEN 325 MG TAB PO PRN (22:30)
[2021-11-23] MEDS: oxyCODONE HCL IR 5 MG TAB (IMMEDIATE RELEASE) PO PRN (02:33)
[2021-11-23] MEDS ORDERED: ceFAZolin 2000MG 2,000 MG/15 ML SYR IV SCH (06:00)
[2021-11-23 07:36] LABS: Basophils # (auto) 0.07 K/uL (0-0.2); Basophils % (auto) 0.7 %; Eosinophils # (auto) 0.33 K/uL (0-0.50); Eosinophils % (auto) 3.2 %; Hemoglobin 12.5 g/dl (14.0-18.0); Immature Granulocytes # (auto) 0.06 K/uL (0.00-0.02); Immature Granulocytes % (auto) 0.6 %; Lymphocytes # (auto) 1.54 K/uL (1.2-3.4); Lymphocytes % (auto) 14.9 %; Mean Corpuscular Hemoglobin 30.4 pg (25.0-34.0); Mean Corpuscular Hgb Conc 32.9 g/dL (32.0-36.0); Mean Corpuscular Volume 92.5 fL (80.0-100.0); Mean Platelet Volume 10.4 fL (9.4-12.4); Monocytes # (auto) 1.23 K/uL (0.24-0.82); Monocytes % (auto) 11.9 %; Neutrophils # (auto) 7.09 K/uL (1.4-6.5); Neutrophils % (auto) 68.7 %; Platelet Count 198 K/uL (130-400); RDW Coefficient of Variation 13.7 % (11.5-14.5); RDW Standard Deviation 46.5 fL (36.4-46.3); Red Blood Count 4.11 M/uL (4.63-6.08); White Blood Count 10.32 K/ul (4.8-10.8)
[2021-11-23 07:57] LABS: Albumin Globulin Ratio 1.1 (0.9-2); Albumin Level 3.7 gm/dl (3.4-5.0); BUN Creatinine Ratio 20.5 (10-20); Bilirubin,Total 0.9 mg/dl (0.2-1.0); Calcium 8.5 mg/dl (8.5-10.1); Creatinine Clr Calc Pharmacy 71.6 ml/min; Est GFR (African American) 69.2 ml/min; Est GFR (Non-African American) 59.7 ml/min; Globulin 3.3 gm/dl (2.5-4.0); Potassium 4.3 mmol/L (3.5-5.1)
[2021-11-23 08:24] LABS: Estimated Average Glucose 117 mg/dl; Hemoglobin A1C 5.7 % (4.5-5.6)
[2021-11-23] MEDS: SODIUM CHLORIDE 0.9% 1000ML 1,000 ML IV SCH ×2 (12:49→23:13)
[2021-11-23] MEDS: MoRPHine SULFATE 4 MG/ML 1 ML CARP\\VIAL IV PRN (14:11)
--- NOTE | 2021-11-23 16:21 | Hospitalist Progress Note ---
Date of Service November 23, 2021 Assessment & Plan (1) Fall: (2) Intertrochanteric fracture of right femur: (3) Essential hypertension: (4) Focal glomerular sclerosis: Plan This is a 71-year-old male who has a significant past medical history of HTN, HLD, prediabetes, GERD, focal segmental clavicular sclerosis, CKD stage III, bullous pemphigus and anxiety who presents to ED after sustaining a fall at home. Hip/Pelvis Xray: IMPRESSION: Acute nondisplaced intertrochanteric fracture of the right femur. Schedule for hip repair with Dr. Neal today; keep NPO Bed rest, SCDS IV morphine severe pain, oxy IR moderate pain Pre op antibiotics ordered Continue NSS 100ml/hr while NPO HTN BP controlled on amlodipine and metoprolol CKD 3 Focal Glomerular Sclerosis baseline cr 1.2-1.3 bun/cr 26 and 1.46 has not followed up with nephro in few years, appears pt follows with [facility] nephro recommend regular follow up with nephro avoid nephrotoxic agents especially nsaids Pre DM last a1c 6.0 10/27/20 obtain a1c in a.m Anxiety continue zoloft Dvt ppx: SCDS for now until surgery timing decided, recommend initiate chemical prophylaxis when able Dispo: Med/surg PCP: Dr. Anibal Mckeon Full Code Pt was seen and examined in collaboration with Dr. Guadarrama, please see addendum Admission and Anticipated Discharge Date Admission Date: November 22, 2021 Supervising Physician Co-Signing Physician Notes Patient seen and examined by ia, care coordinated with Kami Bowles PA-C, please refer to her note above for further detail. Patient is currently resting in bed, in no acute distress. He is hard of hearing. Right lower extremity shortened externally rotated, tender to palpation in the hip area. Range of motion not assessed due to known hip fracture. Plan for OR later today. Patient is currently NPO. Denies any fevers, chills, chest pain, shortness of breath, abdominal pain, nausea vomiting. Confirms mechanical fall. MD Chiara Subjective Seen and examined in 354 bed 2. Resting comfortably, awaiting OR. Denies any pain at rest. No fever, chills, chest pain, shortness of breath, nausea, vomiting, abdominal pain, dysuria, diarrhea or constipation. Review of Systems Review of Systems: At least ten systems reviewed and negative except as noted in the HPI. Physical Exam Physical Exam: General Appearance:Obese, no apparent distress Head: normocephalic, Atraumatic Eyes: normal inspection, EOMI Neck: supple, Trachea midline Respiratory/Chest: Normal breath sounds, CTA, No accessory muscle use Cardiovascular: S1, S2, No murmur, Bradycardia Abdomen/GI:Soft, Non tender, Bowel sounds present Extremities/Musculoskeletal: normal inspection, no edema, right lower extremity externally rotated, shortened, decreased range of movement secondary to pain, right hip with mild TTP Neurologic/Psych:AAOX3, grossly no focal neurological deficits Skin: normal color, warm Results & Data Results & Data ([facility]) Vital Signs (Past 12 Hours) Vital Signs Temp Pulse Resp BP Pulse Ox O2 Del Method 11/23/21 15:47 36.7 C 58 L 16 134/64 92 Room Air 11/23/21 07:15 36.8 C 52 L 18 128/74 90 11/23/21 08:00 Room Air Laboratory Results Short CBC 11/23/21 Range/Units 07:01 WBC 10.32 (4.8-10.8) K/ul Hgb 12.5 L (14.0-18.0) g/dl Hct 38.0 L (40.1-51.0) % Plt Count 198 (130-400) K/uL BMP 11/23/21 07:01 Sodium 138 Potassium 4.3 Chloride 105 Carbon Dioxide 27 BUN 25 H Creatinine 1.22 Glucose 106 H Calcium 8.5 Liver Function 11/23/21 Range/Units 07:01 Total Bilirubin 0.9 (0.2-1.0) mg/dl AST 22 (13-39) U/L ALT 25 (7-52) U/L Alkaline Phosphatase 76 (34-104) U/L Albumin 3.7 (3.4-5.0) gm/dl Diagnostic Findings Cervical Spine CT 11/22/21 11:[address] DOSE: 661.61 mGycm HISTORY: Fall. Neck pain. TECHNIQUE: Multiaxial CT images of the cervical spine were performed and reformatted in the sagittal and coronal plane without the use of contrast. A dose lowering technique was utilized adhering to the principles of ALARA. COMPARISON: Cervical spine CT 11/26/2011. FINDINGS: No fractures. No subluxation. Prevertebral soft tissues and the C1-C2 interval are intact. No pneumothorax. Severe degenerative disc disease from C4 through C7. IMPRESSION: No fractures within the cervical spine. ACT 112: Negative or not required by law. Electronically signed by: Arthur Marshall M.D. 11/22/2021 12:40 PM Chest X-Ray 11/22/21 11:43 SINGLE VIEW CHEST CLINICAL HISTORY: Fall. Right hip fracture. Atypical chest pain. FINDINGS: An AP, portable, supine chest radiograph is compared to study dated 11/24/2011. The heart is mildly enlarged noting atherosclerotic calcification of the thoracic aorta. The pulmonary vasculature is noncongested. There is mild bibasilar scarring/atelectasis. No airspace consolidation or large pleural effusion is identified. No pneumothorax is seen. The skeletal structures are osteopenic. The bony thorax is grossly intact. IMPRESSION: Mild cardiomegaly with no acute cardiopulmonary abnormality identified. ACT 112: Negative or not required by law. Electronically signed by: Tio Hunt M.D. 11/22/2021 1:[address] 11/22/21 11:43 CT head/brain wo con CLINICAL HISTORY: 71 years-old Male with fall. Acute head trauma status post fall TECHNIQUE: Multiple axial CT images of the head were obtained without contrast. A dose lowering technique was utilized adhering to the principles of ALARA. CT DOSE: 823.94 mGycm COMPARISON: CT cervical spine of same day, head CT 06/30/2011 FINDINGS: No acute intracranial hemorrhage, midline shift, intracranial mass, hydrocephalus, territorial ischemia or abnormal extra-axial collection. Mild involutional changes. Senescent calcifications of the basal ganglia. The calvarium is intact. Trace right mastoid effusion. Left mastoid air cells are clear. Moderate mucosal thickening of the ethmoid air cells with mild mucosal thickening of the right maxillary sinus. Unremarkable soft tissues and orbits. IMPRESSION: No acute intracranial abnormality or calvarial fracture. ACT 112: Negative or not required by law. The above report was generated using voice recognition software. It may contain grammatical, syntax or spelling errors. Electronically signed by: Connor Sweet M.D. 11/22/2021 12:32 PM Hip/Pelvis X-Ray 11/22/21 11:43 XR hip RT 2V w pelvis HISTORY: 71 years-old Male fall acute pelvic pain status post fall COMPARISON: None TECHNIQUE: Supine AP view of the pelvis with 2 views of the right hip FINDINGS: Moderate osteoarthritis of the hips. Limited exam secondary to positioning. There is an acute intertrochanteric fracture of the right proximal femur with fracture displacement/separation measuring up to approximately 6 mm. No dislocation or avascular necrosis. IMPRESSION: Acute nondisplaced intertrochanteric fracture of the right femur. ACT 112: Negative or not required by law. The above report was generated using voice recognition software. It may contain grammatical, syntax or spelling errors. Electronically signed by: Connor Sweet M.D. 11/22/2021 1:51 PM (1) Fall Encounter type: initial encounter Qualified Code(s): W19.XXXA - Unspecified fall, initial encounter (2) Intertrochanteric fracture of right femur Encounter type: initial encounter Fracture alignment: displaced Fracture type: closed Qualified Code(s): S72.141A - Displaced intertrochanteric fracture of right femur, initial encounter for closed fracture
[2021-11-23] MEDS ORDERED: LIDOCAINE 2% 2 ML VIAL/AMP(20MG/ML) INFIL ONE (18:39)
[2021-11-23] MEDS ORDERED: PROPOFOL IV EMULSION 10 MG/ML 20 ML VIAL IV ONE (18:39)
[2021-11-23] MEDS ORDERED: ONDANSETRON INJ 2 MG/ML 2 ML VIAL ONE (18:39)
[2021-11-23] MEDS ORDERED: DEXAMETHASONE SOD INJ 4 MG/ML VIAL ONE (18:39)
[2021-11-23] MEDS ORDERED: fentaNYL citrate 100 MCG/2 ML VIAL ONE ×2 (18:39→21:05)
[2021-11-23] MEDS ORDERED: MIDAZOLAM HCL 1 MG/ML 2ML VIAL ONE (18:39)
--- NOTE | 2021-11-23 18:58 | History & Physical Bridge Note ---
Date of Service November 23, 2021 History & Physical Bridge Note I have examined the patient, reviewed the History & Physical and in the interval since the performance of the History & Physical I have noted the following changes of clinical significance: no changes noted
[2021-11-23] MEDS ORDERED: ONDANSETRON INJ 2 MG/ML 2 ML VIAL IV PRN (19:00)
[2021-11-23] MEDS ORDERED: ATROPINE SULFATE 0.1 MG/ML 10ML SYR IV PRN (19:00)
[2021-11-23] MEDS ORDERED: ePHEDrine sulfate 50 MG/ML AMP IV PRN (19:00)
[2021-11-23] MEDS ORDERED: BUPIVACAINE 0.5 % 5 MG/1 ML MPF 30ML VIAL ONE (19:17)
--- NOTE | 2021-11-23 20:49 | Fluoroscopy Report ---
FL hip RT 2-3V CLINICAL HISTORY: RT TROCH NAIL. Right hip fracture. COMPARISON STUDY: Right hip 11/22/2021. FLUOROSCOPY TIME: 46 seconds.. FINDINGS: 4 fluoroscopic spot images of the right hip demonstrate a right femoral intramedullary aimee within interlocking femoral neck pin transfixing the right intertrochanteric fracture. The hardware a ppears intact. Alignment is near-anatomic. IMPRESSION: Fluoroscopic assistance provided for internal fixation of a right intertrochanteric femor al fracture. ACT 112: Negative or not required by law. Electronically signed by: Arthur Marshall M.D. 11/23/2021 8:47 PM
--- NOTE | 2021-11-23 20:56 | Post Operative Brief Note ---
Immediate Post Op Note v1 Date of Surgery November 23, 2021 Pre & Post Diagnosis Operation Date: 11/23/21 09:20 Pre-Op Diagnosis: Displaced intertrochanteric fracture of right femur Post-Op Diagnosis: Displaced intertrochanteric fracture of right femur I identified the patient and participated in the time-out.: Yes Procedure Operation Date: 11/23/21 09:20 Actual Procedures p Open Reduction Internal Fixation Intertrochanteric Hip Fracture Right with Synthes 11 mm x 130 degree titanium cannulated trochanteric fixation nail 170 mm in length, 11 mm x 95 mm helical blade and a 5 mm x 38 mm locking screw (Right) - Christopher Neal DO Surgeon Christopher Neal DO Trailer Assembler Chad Tanner PA-C Estimated Blood Loss 40 Findings Consistent with Post-Op Diagnosis Anesthesia Type General Regional Complications none Disposition Accompanied Patient To Recovery: No
--- NOTE | 2021-11-23 21:00 | Anesthesiology Progress Note ---
Date of Service November 23, 2021 Anesthesia Post Procedure Vital Signs Vital Signs: Temp Pulse Pulse Resp BP Pulse Ox Pulse Ox 11/23/21 17:42 37.5 C 66 20 113/95 94 11/23/21 15:47 36.7 C 58 L 16 134/64 92 11/23/21 07:15 36.8 C 52 L 18 128/74 90 11/23/21 08:00 11/23/21 01:04 91 11/23/21 01:00 37.1 C 63 20 90 11/23/21 00:08 37.1 C 63 20 138/65 90 11/22/21 21:50 37.0 C 65 16 107/61 91 O2 Del Method O2 Del Method O2 Flow Rate 11/23/21 17:42 Nasal Cannula 2 11/23/21 15:47 Room Air 11/23/21 07:15 11/23/21 08:00 Room Air 11/23/21 01:04 Room Air 11/23/21 01:00 Room Air 11/23/21 00:08 Room Air 11/22/21 21:50 Room Air Pain Intensity Right Hip: Pain Intensity: 3 Transfer of Care Handoff Completed per policy Notes Mental Status: alert / awake / arousable Patient Amnestic to Procedure: Yes Nausea / Vomiting: adequately controlled Pain: adequately controlled Airway Patency, RR, SpO2: stable & adequate BP & HR: stable & adequate Hydration State: stable & adequate Anesthetic Complications: no major complications apparent
[2021-11-23] MEDS: fentaNYL citrate 100 MCG/2 ML VIAL IV PRN ×2 (21:07→21:19)
--- NOTE | 2021-11-23 22:06 | Operative Report (OR) ---
DATE OF PROCEDURE: 11/23/2021. PREOPERATIVE DIAGNOSIS: Right displaced intertrochanteric fracture of the hip. POSTOPERATIVE DIAGNOSIS: Right displaced intertrochanteric fracture of the hip. PROCEDURE: Right hip open reduction and internal fixation of displaced intertrochanteric fracture wi th a Synthes trochanteric fixation nail, 11 mm x 130 degree x 170 mm in length, 11 x 95 mm helical bl anirudh and 5 mm x 38 mm locking screw. SURGEON: Christopher Neal DO CHAIN MAKER: Chad Tanner PA-C who was present for patient positioning, sterile prep and drape, management of retractors and instruments. He was present through the critical portions of the case in cluding wound closure, application of sterile dressing and transport of the patient to recovery. ANESTHESIA: General, regional. SPECIMENS: None. DRAINS: None. COMPLICATIONS: None. BLOOD LOSS: 40 mL PERTINENT HISTORY: This is a 71-year-old gentleman who was at home in usual health, he missed a step , falling directly on his right hip. He had immediate pain and inability to ambulate. He was transp orted to [facility]. He was evaluated and radiographed, noted to have a displaced i ntertrochanteric right hip fracture. He was admitted to the hospitalist service. He was optimized f or surgery. Orthopedics was scheduled to consult. The patient was then scheduled for surgery as ind icated. All potential risks, benefits, complications, alternatives, rehab potential for incomplete relief of symptoms, need for further surgery, DVT, PE, , persistent pain, swelling, scarring, weakness, ne urovascular injury, wound complications, hardware failure, nonunion, malunion, bone fracture were dis cussed with the patient. The patient decided to proceed with procedure as indicated. PROCEDURE: The patient was transferred to the operative suite. The proper site was identified. The co nsent was reviewed, the patient was then administered sedation and spinal anesthetic. Once appropriat e, the patient then transferred to the fracture table where the lower extremity was placed in fractur e table traction and the nonoperative leg was placed in the well leg [place]. All bony prominences wer e properly padded and protected. The padded post was placed in the peroneal and the patient was posit ioned appropriately. Next the right leg was placed on traction and reduction of the fracture was perf ormed under fluoroscopic control. Next the operative hip was then sterilely prepped and draped in the usual fashion. Next a 10-blade scalpel incision was used to make an incision proximal to the greater trochanter. The incision was deep in the subcutaneous tissue and fascia and the tip of the greater t rochanter was then palpated followed by placement of a guide pin under fluoroscopic control driven in to the greater trochanter down to the level of the less trochanter. This was confirmed in AP and late ral projections followed by placement of the proximal reamer over the cannulated guide pin. Next the reamer was then removed using the soft tissue protector, which was also removed. Next the ball tip gu nancy aimee was placed into the proximal femur under fluoroscopic control confirmed with AP and lateral f luoroscope projections. Next the trochanteric nail was then passed over the guide aimee into the femur, the guide aimee was removed and then under fluoroscopic control appropriate level of the femoral nail was then placed in AP projections. Next the targeting device was then fixed to the driving handle and 10-blade scalpel incision was made in the lateral aspect of the thigh. Next the tissue protector and cannulated guide system was then passed into the soft tissue until it was securely fixed against a l ateral aspect of the femoral cortex. This was also confirmed under C-arm. Next the guide pin for the helical blade was driven into the lateral aspect of the femur confirming this with AP lateral project ions until the guide pin was in the center of the femoral neck and head approximately 5 mm from the s ubcortical bone of the femur. Next the helical blade was then measured and then the lateral cortex wa s then drilled with the cortex reamer followed by use of the triple reamer with the depth stop set at appropriate depth. In this case a 11 x 95 mm helical blade was then inserted over the cannulated hailey de aimee under fluoroscopic control. This was seated appropriately then traction was reduced from the l imb and the fracture was then gently compressed and then locked proximally with the flexible screwdri mark. Next the helical blade was then disengaged from its insertion handle, insertion handle was then removed and the guide pin was removed from the femoral neck and head. Next the lateral targeting arm was used to insert the distal locking screw. First a 10-blade scalpel incision was made in the latera l aspect of the thigh, captured drill sleeves were then tamped gently to the lateral aspect of the fe moral cortex then the locking screw hole was then drilled, measured and then an appropriate length sc rew was placed to lock the distal aspect of the nail. Next targeting sleeves were then removed. The i nsertion arm was then removed from the nail and final x-rays were obtained in AP and lateral projecti ons. All incisions were then copiously irrigated with sterile normal saline. The proximal gluteus fas stanley was then closed using interrupted #1 Vicryl, the dermis was closed using buried interrupted 2-0 V icryl sutures in all three incisions and the skin was then closed using skin ghislaine. A sterile compr essive dressing consisting of Xeroform gauze, sterile 4 x 4's and Tegaderm was applied. The patient w as then awakened and taken to recovery in stable condition. Job ID: [id number]
[2021-11-23] MEDS: amLODIPine BESYLATE 5 MG TAB PO SCH (23:08)
[2021-11-23] MEDS: METOPROLOL SUCC 50MG EXT REL TAB PO SCH (23:09)
[2021-11-23] MEDS: SERTRALINE HCL 100 MG TABLET PO SCH (23:10)
[2021-11-23] MEDS: DOCUSATE SODIUM/SENNA 50/8.6MG TAB PO SCH (23:10)
[2021-11-24] MEDS: oxyCODONE HCL IR 5 MG TAB (IMMEDIATE RELEASE) PO PRN ×3 (00:25→13:20)
[2021-11-24] MEDS: MoRPHine SULFATE 4 MG/ML 1 ML CARP\\VIAL IV PRN (02:42)
[2021-11-24 06:42] LABS: Hematocrit (blood only) 35.3 % (40.1-51.0); Hemoglobin 11.6 g/dl (14.0-18.0); Mean Corpuscular Hemoglobin 30.9 pg (25.0-34.0); Mean Corpuscular Hgb Conc 32.9 g/dL (32.0-36.0); Mean Corpuscular Volume 93.9 fL (80.0-100.0); Mean Platelet Volume 10.7 fL (9.4-12.4); Platelet Count 179 K/uL (130-400); RDW Coefficient of Variation 13.9 % (11.5-14.5); RDW Standard Deviation 47.8 fL (36.4-46.3); Red Blood Count 3.76 M/uL (4.63-6.08); White Blood Count 10.92 K/ul (4.8-10.8)
[2021-11-24 07:17] LABS: BUN Creatinine Ratio 21.4 (10-20); Calcium 8.1 mg/dl (8.5-10.1); Creatinine Clr Calc Pharmacy 74.7 ml/min; Est GFR (African American) 72.8 ml/min; Est GFR (Non-African American) 62.8 ml/min; Potassium 4.1 mmol/L (3.5-5.1)
--- NOTE | 2021-11-24 08:02 | Hospitalist Progress Note ---
Date of Service November 24, 2021 Assessment & Plan (1) Fall: (2) Intertrochanteric fracture of right femur: (3) Essential hypertension: (4) Focal glomerular sclerosis: Plan This is a 71-year-old male who has a significant past medical history of HTN, HLD, prediabetes, GERD, focal segmental clavicular sclerosis, CKD stage III, bullous pemphigus and anxiety who presents to ED after sustaining a fall at home. Hip/Pelvis Xray: IMPRESSION: Acute nondisplaced intertrochanteric fracture of the right femur. Orthopedics consulted. Impression: Right displaced intertrochanteric fracture of the hip. S/p Right hip open reduction and internal fixation of displaced intertrochanteric fracture - w/Dr. Neal on 11/23/2021 Bed rest, SCDS - discuss w/ ortho when chemoprophylaxis ok IV morphine severe pain, oxy IR moderate pain Periop op antibiotics given PT/OT per ortho Hypoxia - post op Currently on 2L of suppl. oxygen -Encourage incentive spirometry, try to wean off oxygen -Patient is a current smoker Acute blood loss anemia, post -op, dilutional pre-op Hgb 14.6, and 12.5 - dilutional now 11.6 - expected - no need for blood transfusion HTN BP controlled on amlodipine and metoprolol CKD 3 Focal Glomerular Sclerosis baseline cr 1.2-1.3 bun/cr 26 and 1.46 Current Cr 1.2 has not followed up with nephro in few years, appears pt follows with [facility] nephro recommend regular follow up with nephro avoid nephrotoxic agents especially nsaids Pre DM last a1c 6.0 10/27/20 Hgb a1c 5.7% Anxiety continue zoloft Dvt ppx: SCDS for now until surgery ok with chemical prophylaxis Dispo: Med/surg PCP: Dr. Anibal Mckeon Full Code Admission and Anticipated Discharge Date Admission Date: November 22, 2021 Subjective Patient seen in follow-up of R hip fracture, s/p mechanical fall. Status post ORIF last evening. Currently laying in bed, in no acute distress. He is using supplemental oxygen, usually he is not using oxygen. He is a smoker. Denies any pain at this time. No fever, chills, chest pain, shortness of breath, nausea, vomiting, abdominal pain, dysuria, diarrhea or constipation. Encouraged incentive spirometry. We will try to wean off oxygen. Review of Systems Review of Systems: All systems reviewed & are unremarkable except as noted in Subjective Physical Exam Physical Exam: General Appearance:Obese M, no apparent distress, on suppl. O2 2L Head: normocephalic, Atraumatic Eyes: normal inspection, EOMI Neck: supple, Trachea midline Respiratory/Chest: Normal breath sounds, CTA, No accessory muscle use, on 2L of suppl. O2 Cardiovascular: S1, S2, No murmur, Bradycardia Abdomen/GI:Soft, Non tender, Bowel sounds present Extremities/Musculoskeletal: normal inspection, no edema, right hip with mild TTP, clean surgical dressings applied Neurologic/Psych:AAOX3, answering which is appropriately, no facial symmetry. Hard of hearing. Skin: normal color, warm Results & Data Results & Data ([facility]) Vital Signs (Past 12 Hours) Vital Signs Temp Pulse Pulse Resp BP Pulse Ox O2 Del Method 11/23/21 22:30 Nasal Cannula 11/24/21 01:31 36.8 C 67 14 119/51 L 85 L Room Air 11/24/21 00:06 36.6 C 62 14 137/71 85 L Room Air 11/23/21 23:19 36.3 C L 62 14 133/78 94 Room Air 11/23/21 22:15 36.5 C 61 14 135/73 99 Room Air 11/23/21 22:00 62 14 131/69 98 Nasal Cannula 11/23/21 21:50 62 15 116/67 95 Nasal Cannula 11/23/21 21:40 36.4 C L 63 14 124/78 93 Nasal Cannula 11/23/21 21:30 64 17 116/82 93 Nasal Cannula 11/23/21 21:20 63 16 126/94 93 Oxymask 11/23/21 21:10 65 17 155/70 H 93 Oxymask 11/23/21 21:00 66 17 133/98 91 Oxymask 11/23/21 20:54 36.1 C L 64 16 134/76 96 Oxymask O2 Flow Rate 11/23/21 22:30 3 11/24/21 01:31 11/24/21 00:06 11/23/21 23:19 11/23/21 22:15 11/23/21 22:00 3 11/23/21 21:50 3 11/23/21 21:40 3 11/23/21 21:30 4 11/23/21 21:20 6 11/23/21 21:10 6 11/23/21 21:00 6 11/23/21 20:54 6 Laboratory Results 11/24/21 11/24/21 11/24/21 Range/Units 05:42 05:42 05:42 WBC 10.92 H (4.8-10.8) K/ul RBC 3.76 L (4.63-6.08) M/uL Hgb 11.6 L (14.0-18.0) g/dl Hct 35.3 L (40.1-51.0) % MCV 93.9 (80.0-100.0) fL MCH 30.9 (25.0-34.0) pg MCHC 32.9 (32.0-36.0) g/dL RDW Std Deviation 47.8 H (36.4-46.3) fL RDW Coeff of Jeninfer 13.9 (11.5-14.5) % Plt Count 179 (130-400) K/uL MPV 10.7 (9.4-12.4) fL Sodium 137 (136-145) mmol/L Potassium 4.1 (3.5-5.1) mmol/L Chloride 105 (98-107) mmol/L Carbon Dioxide 27 (21-32) mmol/L Anion Gap 5 (3-11) BUN 25 H (6-23) mg/dl Creatinine 1.17 (0.6-1.4) mg/dl Est Cr Clr Drug Dosing 74.7 ml/min Est GFR ( Amer) 72.8 ml/min Est GFR (Non-Af Amer) 62.8 ml/min BUN/Creatinine Ratio 21.4 H (10-20) Glucose 112 H (70-99(Fasting)) mg/dl Estimat Average Glucose mg/dl Hemoglobin A1c (4.5-5.6) % Calcium 8.1 L (8.5-10.1) mg/dl 25-OH Vitamin D Total 18.7 L (30-100) ng/ml 11/23/21 Range/Units 07:01 WBC (4.8-10.8) K/ul RBC (4.63-6.08) M/uL Hgb (14.0-18.0) g/dl Hct (40.1-51.0) % MCV (80.0-100.0) fL MCH (25.0-34.0) pg MCHC (32.0-36.0) g/dL RDW Std Deviation (36.4-46.3) fL RDW Coeff of Jennifer (11.5-14.5) % Plt Count (130-400) K/uL MPV (9.4-12.4) fL Sodium (136-145) mmol/L Potassium (3.5-5.1) mmol/L Chloride (98-107) mmol/L Carbon Dioxide (21-32) mmol/L Anion Gap (3-11) BUN (6-23) mg/dl Creatinine (0.6-1.4) mg/dl Est Cr Clr Drug Dosing ml/min Est GFR ( Amer) ml/min Est GFR (Non-Af Amer) ml/min BUN/Creatinine Ratio (10-20) Glucose (70-99(Fasting)) mg/dl Estimat Average Glucose 117 mg/dl Hemoglobin A1c 5.7 H (4.5-5.6) % Calcium (8.5-10.1) mg/dl 25-OH Vitamin D Total (30-100) ng/ml Medications Administered Current Inpatient Medications Al Hydrox/Mg Hydrox/Simethicone (Aluminum/Magnesium Susp 30 Ml Udc) 30 ml PO Q6H PRN PRN Reason: Dyspepsia Stop: 12/22/21 17:03 Amlodipine Besylate (Amlodipine Besylate 5 Mg Tab) 10 mg PO [facility] Stop: 12/22/21 20:59 Last Admin: 11/23/21 23:08 Dose: 10 mg Bisacodyl (Bisacodyl 10 Mg Supp) 10 mg [place] DAILY PRN PRN Reason: Constipation Stop: 12/22/21 17:03 Promethazine HCl 12.5 mg/ (Sodium Chloride) 50.5 mls @ 202 mls/hr IV Q6H PRN PRN Reason: Nausea And Vomiting Stop: 12/22/21 17:03 Sodium Chloride (Nss 1000ml) 1,000 mls @ 100 mls/hr IV .Q10H [facility] Stop: 12/23/21 11:59 Last Admin: 11/23/21 23:13 Dose: 100 mls/hr Magnesium Hydroxide (Magnesium Hydroxide Susp 30 Ml Udc) 30 ml PO Q6H PRN PRN Reason: Constipation Stop: 12/22/21 17:03 Metoprolol Succinate (Metoprolol Succ 50mg Ext Rel Tab) 100 mg PO [facility] Stop: 12/22/21 20:59 Last Admin: 11/23/21 23:09 Dose: Not Given Morphine Sulfate (Morphine Sulfate 2 Mg/Ml Carp) 2 mg IV Q3H PRN PRN Reason: Pain (1,2,3,4,5) & Pre PT Stop: 12/06/21 17:03 Morphine Sulfate (Morphine Sulfate 4 Mg/Ml 1 Ml Carp\Vial) 4 mg IV Q3H PRN PRN Reason: Pain (6,7,8,9,10) Stop: 12/06/21 17:03 Last Admin: 11/24/21 02:42 Dose: 4 mg Naloxone HCl (Naloxone Hcl 0.4 Mg/1 Ml Vial/Carp) 0.1 mg IV UD PRN PRN Reason: Opiate Overdose Stop: 12/22/21 17:03 Oxycodone HCl (Oxycodone Hcl Ir 5 Mg Tab (Immediate Release)) 5 mg PO Q4H PRN PRN Reason: MODERATE Pain (4,5,6) & Pre PT Stop: 12/06/21 17:03 Oxycodone HCl (Oxycodone Hcl Ir 5 Mg Tab (Immediate Release)) 10 mg PO Q4H PRN PRN Reason: SEVERE Pain (7,8,9,10) Stop: 12/06/21 17:03 Last Admin: 11/24/21 05:57 Dose: 10 mg Polyethylene Glycol (Polyethylene (Miralax) 17 Gm Pack) 17 gm PO DAILY PRN PRN Reason: Constipation Stop: 12/22/21 17:03 Senna/Docusate Sodium (Docusate Sodium/Senna 50/8.6mg Tab) 2 tab PO [facility] Stop: 12/22/21 20:59 Last Admin: 11/23/21 23:10 Dose: 2 tab Sertraline HCl (Sertraline Hcl 100 Mg Tablet) 200 mg PO [facility] Stop: 12/22/21 20:59 Last Admin: 11/23/21 23:10 Dose: 200 mg (1) Fall Encounter type: initial encounter Qualified Code(s): W19.XXXA - Unspecified fall, initial encounter (2) Intertrochanteric fracture of right femur Encounter type: initial encounter Fracture alignment: displaced Fracture type: closed Qualified Code(s): S72.141A - Displaced intertrochanteric fracture of right femur, initial encounter for closed fracture
[2021-11-24] MEDS: SODIUM CHLORIDE 0.9% 1000ML 1,000 ML IV SCH (09:38)
[2021-11-24] MEDS ORDERED: ERGOCALCIFEROL 50,000 UNITS 1250 MCG CAP PO SCH (12:45)
--- NOTE | 2021-11-24 16:01 | Orthopedic Progress Note ---
Date of Service November 24, 2021 Assessment & Plan (1) Intertrochanteric fracture of right femur: Plan: Continue physical therapy. Social service to assist with rehab and postoperative disposition. Weightbearing toe touch with walker and assist x1. Continue DVT prophylaxis. Admission and Anticipated Discharge Date Admission Date: November 22, 2021 Subjective Patient seen in follow-up of R hip fracture, s/p mechanical fall. Status post ORIF yesterday. Laying in bed reading a book. at bedside. No new complaints. He was up with physical therapy earlier today. Physical Exam Physical Exam: Patient lying in bed. Awake and alert reading a book. present. Examination of the right hip demonstrates intact dressing no evidence of strikethrough. Hip is supple. Mild edema. No erythema. Pedal pulses intact. Cap refill brisk. Neurovascular status intact. Results & Data ([facility]) Vital Signs (Past 12 Hours) Vital Signs Temp Pulse Resp BP BP Pulse Ox O2 Del Method 11/24/21 15:29 36.7 C 74 16 138/64 91 Nasal Cannula 11/24/21 11:34 36.7 C 81 16 143/71 H 93 Nasal Cannula 11/24/21 07:30 Nasal Cannula 11/24/21 08:49 129/73 11/24/21 08:42 93 Nasal Cannula 11/24/21 08:26 36.9 C 68 16 161/72 H 90 Nasal Cannula O2 Flow Rate 11/24/21 15:29 1 11/24/21 11:34 2 11/24/21 07:30 1 11/24/21 08:49 11/24/21 08:42 1 11/24/21 08:26 2 (1) Intertrochanteric fracture of right femur Encounter type: initial encounter Fracture alignment: displaced Fracture type: closed Qualified Code(s): S72.141A - Displaced intertrochanteric fracture of right femur, initial encounter for closed fracture
[2021-11-24] MEDS: METOPROLOL SUCC 50MG EXT REL TAB PO SCH (21:46)
[2021-11-24] MEDS: DOCUSATE SODIUM/SENNA 50/8.6MG TAB PO SCH (21:47)
[2021-11-24] MEDS: SERTRALINE HCL 100 MG TABLET PO SCH (21:47)
[2021-11-24] MEDS: amLODIPine BESYLATE 5 MG TAB PO SCH (21:47)
[2021-11-24] MEDS: ASPIRIN 81 MG ECTAB PO SCH (21:48)
[2021-11-25 06:30] LABS: Hematocrit (blood only) 33.2 % (40.1-51.0); Mean Corpuscular Hemoglobin 30.8 pg (25.0-34.0); Mean Corpuscular Hgb Conc 33.1 g/dL (32.0-36.0); Mean Platelet Volume 10.7 fL (9.4-12.4); Platelet Count 183 K/uL (130-400); RDW Coefficient of Variation 13.2 % (11.5-14.5); RDW Standard Deviation 45.2 fL (36.4-46.3); Red Blood Count 3.57 M/uL (4.63-6.08); White Blood Count 10.05 K/ul (4.8-10.8)
[2021-11-25 07:04] LABS: BUN Creatinine Ratio 23.6 (10-20); Calcium 8.3 mg/dl (8.5-10.1); Creatinine Clr Calc Pharmacy 79.4 ml/min; Est GFR (African American) 78.4 ml/min; Est GFR (Non-African American) 67.7 ml/min; Magnesium 1.9 mg/dl (1.7-2.4); Phosphorus 2.7 mg/dl (2.5-4.9); Potassium 4.1 mmol/L (3.5-5.1)
[2021-11-25] MEDS: ASPIRIN 81 MG ECTAB PO SCH ×2 (07:42→20:58)
--- NOTE | 2021-11-25 08:08 | Hospitalist Progress Note ---
Date of Service November 25, 2021 Assessment & Plan (1) Fall: (2) Intertrochanteric fracture of right femur: (3) Essential hypertension: (4) Focal glomerular sclerosis: Plan This is a 71-year-old male who has a significant past medical history of HTN, HLD, prediabetes, GERD, focal segmental clavicular sclerosis, CKD stage III, bullous pemphigus and anxiety who presents to ED after sustaining a fall at home. Hip/Pelvis Xray: IMPRESSION: Acute nondisplaced intertrochanteric fracture of the right femur. Orthopedics consulted. Impression: Right displaced intertrochanteric fracture of the hip. S/p Right hip open reduction and internal fixation of displaced intertrochanteric fracture - w/Dr. Neal on 11/23/2021 IV morphine severe pain, oxy IR moderate pain Periop op antibiotics given PT/OT per ortho DVT ppx - ASA BID (per ortho) Hypoxia - resolved - post op, was on 2L of suppl. oxygen - currently on RA -Encourage incentive spirometry -Patient is a current smoker Acute blood loss anemia, post -op, dilutional pre-op Hgb 14.6, and 12.5 - dilutional now 11.0 - expected - no need for blood transfusion HTN BP controlled on amlodipine and metoprolol CKD 3 Focal Glomerular Sclerosis baseline cr 1.2-1.3 bun/cr 26 and 1.46 Current Cr 1.1 has not followed up with nephro in few years, appears pt follows with [facility] nephro recommend regular follow up with nephro avoid nephrotoxic agents especially nsaids Pre DM last a1c 6.0 10/27/20 Hgb a1c 5.7% Anxiety continue zoloft Dvt ppx: SCDs, ASA BID (per ortho) Dispo: Med/surg PCP: Dr. Anibal Mckeon Full Code Admission and Anticipated Discharge Date Admission Date: November 22, 2021 Subjective Patient seen in follow-up of R hip fracture, s/p mechanical fall. Status post ORIF. Currently laying in bed, in no acute distress. He is using off suppl. O2. He is a smoker. Denies any pain at this time. No fever, chills, chest pain, shortness of breath, nausea, vomiting, abdominal pain, dysuria, diarrhea or constipation. Encouraged incentive spirometry. Patient's at the bedside and updated. Review of Systems Review of Systems: All systems reviewed & are unremarkable except as noted in Subjective Physical Exam Physical Exam: General Appearance:Obese M, no apparent distress, on RA Head: normocephalic, Atraumatic Eyes: normal inspection, EOMI Neck: supple, Trachea midline Respiratory/Chest: Normal breath sounds, CTA, No accessory muscle use Cardiovascular: S1, S2, No murmur, RRR Abdomen/GI: Soft, Non tender, Bowel sounds present Extremities/Musculoskeletal: normal inspection, right hip with mild TTP, clean surgical dressings applied, + edema of R thigh Neurologic/Psych:AAOX3, answering appropriately, no facial asymmetry. Hard of hearing. Moves extremities. Skin: normal color, warm Results & Data Results & Data ([facility]) Vital Signs (Past 12 Hours) Vital Signs Temp Pulse Resp BP Pulse Ox O2 Del Method O2 Flow Rate 11/25/21 07:42 96 Room Air 11/25/21 07:29 36.6 C 67 18 145/69 H 95 Nasal Cannula 1 11/25/21 03:24 37.0 C 69 18 155/74 H 93 Nasal Cannula 2 11/24/21 21:40 Nasal Cannula 1 11/24/21 21:44 36.7 C 75 18 132/63 94 Room Air Laboratory Results 11/25/21 11/25/21 Range/Units 05:58 05:58 WBC 10.05 (4.8-10.8) K/ul RBC 3.57 L (4.63-6.08) M/uL Hgb 11.0 L (14.0-18.0) g/dl Hct 33.2 L (40.1-51.0) % MCV 93.0 (80.0-100.0) fL MCH 30.8 (25.0-34.0) pg MCHC 33.1 (32.0-36.0) g/dL RDW Std Deviation 45.2 (36.4-46.3) fL RDW Coeff of Jennifer 13.2 (11.5-14.5) % Plt Count 183 (130-400) K/uL MPV 10.7 (9.4-12.4) fL Sodium 138 (136-145) mmol/L Potassium 4.1 (3.5-5.1) mmol/L Chloride 105 (98-107) mmol/L Carbon Dioxide 27 (21-32) mmol/L Anion Gap 6 (3-11) BUN 26 H (6-23) mg/dl Creatinine 1.10 (0.6-1.4) mg/dl Est Cr Clr Drug Dosing 79.4 ml/min Est GFR ( Amer) 78.4 ml/min Est GFR (Non-Af Amer) 67.7 ml/min BUN/Creatinine Ratio 23.6 H (10-20) Glucose 106 H (70-99(Fasting)) mg/dl Calcium 8.3 L (8.5-10.1) mg/dl Phosphorus 2.7 (2.5-4.9) mg/dl Magnesium 1.9 (1.7-2.4) mg/dl Medications Administered Current Inpatient Medications Al Hydrox/Mg Hydrox/Simethicone (Aluminum/Magnesium Susp 30 Ml Udc) 30 ml PO Q6H PRN PRN Reason: Dyspepsia Stop: 12/22/21 17:03 Amlodipine Besylate (Amlodipine Besylate 5 Mg Tab) 10 mg PO [facility] Stop: 12/22/21 20:59 Last Admin: 11/24/21 21:47 Dose: 10 mg Aspirin (Aspirin 81 Mg Ectab) 81 mg PO BID [facility] Stop: 12/24/21 20:59 Last Admin: 11/25/21 07:42 Dose: 81 mg Bisacodyl (Bisacodyl 10 Mg Supp) 10 mg NC DAILY PRN PRN Reason: Constipation Stop: 12/22/21 17:03 Ergocalciferol (Ergocalciferol 50,000 Units 1250 Mcg Cap) 50,000 units PO Sa@0900 [facility] Stop: 12/24/21 12:44 Last Admin: 11/24/21 13:17 Dose: 50,000 units Promethazine HCl 12.5 mg/ (Sodium Chloride) 50.5 mls @ 202 mls/hr IV Q6H PRN PRN Reason: Nausea And Vomiting Stop: 12/22/21 17:03 Magnesium Hydroxide (Magnesium Hydroxide Susp 30 Ml Udc) 30 ml PO Q6H PRN PRN Reason: Constipation Stop: 12/22/21 17:03 Metoprolol Succinate (Metoprolol Succ 50mg Ext Rel Tab) 100 mg PO [facility] Stop: 12/22/21 20:59 Last Admin: 11/24/21 21:46 Dose: 100 mg Morphine Sulfate (Morphine Sulfate 2 Mg/Ml Carp) 2 mg IV Q3H PRN PRN Reason: Pain (1,2,3,4,5) & Pre PT Stop: 12/06/21 17:03 Morphine Sulfate (Morphine Sulfate 4 Mg/Ml 1 Ml Carp\Vial) 4 mg IV Q3H PRN PRN Reason: Pain (6,7,8,9,10) Stop: 12/06/21 17:03 Last Admin: 11/24/21 02:42 Dose: 4 mg Naloxone HCl (Naloxone Hcl 0.4 Mg/1 Ml Vial/Carp) 0.1 mg IV UD PRN PRN Reason: Opiate Overdose Stop: 12/22/21 17:03 Oxycodone HCl (Oxycodone Hcl Ir 5 Mg Tab (Immediate Release)) 5 mg PO Q4H PRN PRN Reason: MODERATE Pain (4,5,6) & Pre PT Stop: 12/06/21 17:03 Oxycodone HCl (Oxycodone Hcl Ir 5 Mg Tab (Immediate Release)) 10 mg PO Q4H PRN PRN Reason: SEVERE Pain (7,8,9,10) Stop: 12/06/21 17:03 Last Admin: 11/24/21 13:20 Dose: 10 mg Polyethylene Glycol (Polyethylene (Miralax) 17 Gm Pack) 17 gm PO DAILY PRN PRN Reason: Constipation Stop: 12/22/21 17:03 Senna/Docusate Sodium (Docusate Sodium/Senna 50/8.6mg Tab) 2 tab PO HS [facility] Stop: 12/22/21 20:59 Last Admin: 11/24/21 21:47 Dose: 2 tab Sertraline HCl (Sertraline Hcl 100 Mg Tablet) 200 mg PO HS [facility] Stop: 12/22/21 20:59 Last Admin: 11/24/21 21:47 Dose: 200 mg (1) Fall Encounter type: initial encounter Qualified Code(s): W19.XXXA - Unspecified fall, initial encounter (2) Intertrochanteric fracture of right femur Encounter type: initial encounter Fracture alignment: displaced Fracture type: closed Qualified Code(s): S72.141A - Displaced intertrochanteric fracture of right femur, initial encounter for closed fracture
--- NOTE | 2021-11-25 09:31 | Orthopedic Progress Note ---
Date of Service November 25, 2021 Assessment & Plan (1) Intertrochanteric fracture of right femur: Plan: POD 2 s/p Right TFN PT/OT protocols. TTWB DVT prophylaxis - ASA bid, SCD's Pain management as written. DC planning - Pt will require Rehab stay prior to returning home. Orthopedics will sign off at this time. Instructions placed in chart. Please call with any questions. Admission and Anticipated Discharge Date Admission Date: November 22, 2021 Subjective POD 2 Pt working with Physical Therapist in the hallway with ambulation. Pt states his pain control is adequate. Denies SOB, CP, LH. PT stating pt will need a rehab stay prior to going home. Physical Exam Physical Exam: Dressings C/D/I. Thigh with swelling consistent with surgery. Calves soft, NT. NV intact. Toes mobile. Results & Data ([facility]) Vital Signs (Past 12 Hours) Vital Signs Temp Pulse Resp BP Pulse Ox O2 Del Method O2 Flow Rate 11/25/21 07:42 96 Room Air 11/25/21 07:29 36.6 C 67 18 145/69 H 95 Nasal Cannula 1 11/25/21 03:24 37.0 C 69 18 155/74 H 93 Nasal Cannula 2 11/24/21 21:40 Nasal Cannula 1 11/24/21 21:44 36.7 C 75 18 132/63 94 Room Air (1) Intertrochanteric fracture of right femur Encounter type: initial encounter Fracture alignment: displaced Fracture type: closed Qualified Code(s): S72.141A - Displaced intertrochanteric fracture of right femur, initial encounter for closed fracture
[2021-11-25] MEDS: oxyCODONE HCL IR 5 MG TAB (IMMEDIATE RELEASE) PO PRN (19:39)
[2021-11-25] MEDS: SERTRALINE HCL 100 MG TABLET PO SCH (20:57)
[2021-11-25] MEDS: METOPROLOL SUCC 50MG EXT REL TAB PO SCH (20:58)
[2021-11-25] MEDS: DOCUSATE SODIUM/SENNA 50/8.6MG TAB PO SCH (20:58)
[2021-11-25] MEDS: amLODIPine BESYLATE 5 MG TAB PO SCH (21:00)
[2021-11-26] MEDS: ASPIRIN 81 MG ECTAB PO SCH ×2 (08:52→20:24)
--- NOTE | 2021-11-26 12:27 | Hospitalist Progress Note ---
Date of Service November 26, 2021 Assessment & Plan (1) Fall: (2) Intertrochanteric fracture of right femur: (3) Essential hypertension: (4) Focal glomerular sclerosis: Plan This is a 71-year-old male who has a significant past medical history of HTN, HLD, prediabetes, GERD, focal segmental clavicular sclerosis, CKD stage III, bullous pemphigus and anxiety who presents to ED after sustaining a fall at home. Hip/Pelvis Xray: IMPRESSION: Acute nondisplaced intertrochanteric fracture of the right femur. Orthopedics consulted. Impression: Right displaced intertrochanteric fracture of the hip. S/p Right hip open reduction and internal fixation of displaced intertrochanteric fracture - w/Dr. Neal on 11/23/2021 IV morphine severe pain, oxy IR moderate pain Periop op antibiotics given PT/OT per ortho DVT ppx - ASA BID (per ortho) Hypoxia - resolved - post op, was on 2L of suppl. oxygen - currently on RA, sat. 94% - Encourage incentive spirometry - Patient is a current smoker Acute blood loss anemia, post -op, dilutional pre-op Hgb 14.6, and 12.5 - dilutional now 11.0 - expected - no need for blood transfusion HTN BP controlled on amlodipine and metoprolol CKD 3 Focal Glomerular Sclerosis baseline cr 1.2-1.3 bun/cr 26 and 1.46 Current Cr 1.1 has not followed up with nephro in few years, appears pt follows with [facility] [place] recommend regular follow up with nephro avoid nephrotoxic agents especially nsaids Pre DM last a1c 6.0 10/27/20 Hgb a1c 5.7% Anxiety continue zoloft Dvt ppx: SCDs, ASA BID (per ortho) Dispo: Med/surg -> CM involved in DC planning PCP: Dr. Anibal Mckeon Full Code Admission and Anticipated Discharge Date Admission Date: November 22, 2021 Subjective Patient seen in follow-up of R hip fracture, s/p mechanical fall. Status post ORIF. Currently laying in bed, in no acute distress. He is off suppl. O2. He is a smoker. Denies any pain at this time. No fever, chills, chest pain, shortness of breath, nausea, vomiting, abdominal pain, dysuria, diarrhea or constipation. Encouraged incentive spirometry. Patient's at the bedside yesterday and updated. Review of Systems Review of Systems: All systems reviewed & are unremarkable except as noted in Subjective Physical Exam Physical Exam: General Appearance:Obese M, no apparent distress, on RA, sat. 94% Head: normocephalic, Atraumatic Eyes: normal inspection, EOMI Neck: supple, Trachea midline Respiratory/Chest: Normal breath sounds, CTA, No accessory muscle use Cardiovascular: S1, S2, No murmur, RRR Abdomen/GI: Soft, Non tender, Bowel sounds present Extremities/Musculoskeletal: normal inspection, right hip with mild TTP, clean surgical dressings applied, + edema of R thigh Neurologic/Psych:AAOX3, answering appropriately, no facial asymmetry. Hard of hearing. Moves extremities. Skin: normal color, warm Results & Data Results & Data ([facility]) Vital Signs (Past 12 Hours) Vital Signs Temp Pulse Resp BP Pulse Ox O2 Del Method 11/26/21 07:04 36.9 C 59 L 18 150/82 H 94 Room Air Medications Administered Current Inpatient Medications Al Hydrox/Mg Hydrox/Simethicone (Aluminum/Magnesium Susp 30 Ml Udc) 30 ml PO Q6H PRN PRN Reason: Dyspepsia Stop: 12/22/21 17:03 Amlodipine Besylate (Amlodipine Besylate 5 Mg Tab) 10 mg PO HS [facility] Stop: 12/22/21 20:59 Last Admin: 11/25/21 21:00 Dose: 10 mg Aspirin (Aspirin 81 Mg Ectab) 81 mg PO BID [facility] Stop: 12/24/21 20:59 Last Admin: 11/26/21 08:52 Dose: 81 mg Bisacodyl (Bisacodyl 10 Mg Supp) 10 mg MS DAILY PRN PRN Reason: Constipation Stop: 12/22/21 17:03 Ergocalciferol (Ergocalciferol 50,000 Units 1250 Mcg Cap) 50,000 units PO Sa@0900 [facility] Stop: 12/24/21 12:44 Last Admin: 11/24/21 13:17 Dose: 50,000 units Promethazine HCl 12.5 mg/ (Sodium Chloride) 50.5 mls @ 202 mls/hr IV Q6H PRN PRN Reason: Nausea And Vomiting Stop: 12/22/21 17:03 Magnesium Hydroxide (Magnesium Hydroxide Susp 30 Ml Udc) 30 ml PO Q6H PRN PRN Reason: Constipation Stop: 12/22/21 17:03 Metoprolol Succinate (Metoprolol Succ 50mg Ext Rel Tab) 100 mg PO HS [facility] Stop: 12/22/21 20:59 Last Admin: 11/25/21 20:58 Dose: 100 mg Morphine Sulfate (Morphine Sulfate 2 Mg/Ml Carp) 2 mg IV Q3H PRN PRN Reason: Pain (1,2,3,4,5) & Pre PT Stop: 12/06/21 17:03 Morphine Sulfate (Morphine Sulfate 4 Mg/Ml 1 Ml Carp\Vial) 4 mg IV Q3H PRN PRN Reason: Pain (6,7,8,9,10) Stop: 12/06/21 17:03 Last Admin: 11/24/21 02:42 Dose: 4 mg Naloxone HCl (Naloxone Hcl 0.4 Mg/1 Ml Vial/Carp) 0.1 mg IV UD PRN PRN Reason: Opiate Overdose Stop: 12/22/21 17:03 Oxycodone HCl (Oxycodone Hcl Ir 5 Mg Tab (Immediate Release)) 5 mg PO Q4H PRN PRN Reason: MODERATE Pain (4,5,6) & Pre PT Stop: 12/06/21 17:03 Oxycodone HCl (Oxycodone Hcl Ir 5 Mg Tab (Immediate Release)) 10 mg PO Q4H PRN PRN Reason: SEVERE Pain (7,8,9,10) Stop: 12/06/21 17:03 Last Admin: 11/25/21 19:39 Dose: 10 mg Polyethylene Glycol (Polyethylene (Miralax) 17 Gm Pack) 17 gm PO DAILY [facility] Stop: 12/26/21 12:44 Senna/Docusate Sodium (Docusate Sodium/Senna 50/8.6mg Tab) 2 tab PO HS [facility] Stop: 12/22/21 20:59 Last Admin: 11/25/21 20:58 Dose: 2 tab Sertraline HCl (Sertraline Hcl 100 Mg Tablet) 200 mg PO HS [facility] Stop: 12/22/21 20:59 Last Admin: 11/25/21 20:57 Dose: 200 mg (1) Fall Encounter type: initial encounter Qualified Code(s): W19.XXXA - Unspecified fall, initial encounter (2) Intertrochanteric fracture of right femur Encounter type: initial encounter Fracture alignment: displaced Fracture type: closed Qualified Code(s): S72.141A - Displaced intertrochanteric fracture of right femur, initial encounter for closed fracture
[2021-11-26] MEDS: POLYETHYLENE (MIRALAX) 17 GM PACK PO SCH (12:56)
[2021-11-26] MEDS: DOCUSATE SODIUM/SENNA 50/8.6MG TAB PO SCH (20:23)
[2021-11-26] MEDS: METOPROLOL SUCC 50MG EXT REL TAB PO SCH (20:23)
[2021-11-26] MEDS: SERTRALINE HCL 100 MG TABLET PO SCH (20:24)
[2021-11-26] MEDS: amLODIPine BESYLATE 5 MG TAB PO SCH (20:24)
[2021-11-26 22:40] VITALS: O2SAT 95
[2021-11-26] MEDS: oxyCODONE HCL IR 5 MG TAB (IMMEDIATE RELEASE) PO PRN (22:51)
[2021-11-27 07:19] VITALS: TEMP 98.1
[2021-11-27] MEDS: ASPIRIN 81 MG ECTAB PO SCH (09:59)
[2021-11-27] MEDS: POLYETHYLENE (MIRALAX) 17 GM PACK PO SCH (09:59)
--- NOTE | 2021-11-27 14:06 | Discharge Summary ---
Date of Service November 27, 2021 Admission HPI Per Admitting Provider This is a 71-year-old male who has a significant past medical history of HTN, HLD, prediabetes, GERD, focal segmental clavicular sclerosis, CKD stage III, bullous pemphigus and anxiety who presents to ED after sustaining a fall at home. Patient was going down his basement when he missed the last step and fell on his right side striking the back of his head. He was able to crawl back up the steps using his arms. Once he got to the top of the steps he was unable to get up and ambulate. He complains of significant right hip pain currently a 3 out of 10. Denies any syncopal event, presyncope, lightheadedness or dizziness preceding the event. He further denies any recent illness, fever, chills, sweats, lightheadedness, dizziness, chest pain, shortness of breath, nausea, vomiting or abdominal pain. He is able to ambulate a flight of steps without getting chest pain or short of breath at baseline. Significance he does have history of high blood pressure controlled on amlodipine and metoprolol. He also has history of prediabetes with last A1c being 6.0 on 10/27/2020. His is at bedside. In ER patient remained hemodynamically stable. He underwent hip and pelvic x-ray which revealed a closed right intertrochanteric nondisplaced femur fracture. He also underwent CT head and neck which was unrevealing. Lab work significant for leukocytosis at 17 K and BUN 26, creatinine 1.46. He did not eat anything today. He did have black coffee for breakfast around 7-8am. Admission Exam Per Admitting Provider Physical Exam: Vitals signs as noted above General Appearance:Obese, no apparent distress Head: normocephalic, Atraumatic Eyes: normal inspection, EOMI Neck: supple, Trachea midline Respiratory/Chest: Normal breath sounds, CTA, No accessory muscle use Cardiovascular: S1, S2, No murmur, Bradycardia Abdomen/GI:Soft, Non tender, Bowel sounds present Extremities/Musculoskeletal:normal inspection, no edema, right lower extremity externally rotated, shortened, decreased range of movement secondary to pain, right hip mildly tender. Neurologic/Psych:AAOX3, grossly no focal neurological deficits Skin: normal color, warm Principal Diagnosis Fall R displaced intertrochanteric femur fracture s/p ORIF on 11/23/[address] Neal Hypoxia - resolved Acute blood loss anemia HTN CKD-3 at baseline Discharge Exam Gen: WD/WN, Obese, M, NAD, A&O x3 HEENT: Normocephalic, atraumatic, conjunctivae moist, sclerae anicteric, mucous membranes moist. Lung: Clear to Auscultation bilaterally, no wheezes/rales/rhonchi Heart: Regular rate, regular rhythm, no murmurs, rubs, or gallops Abdomen: Soft, NT, ND +BS x 4 Extremities: Mild R thigh edema, R hip with ecchymosis, dressing cdi Skin: Warm, no rash, negative turgor. Discharge Data Allergies Allergy/AdvReac Type Severity Reaction Status Date / Time No Known Allergies Allergy Unverified 06/30/11 11:16 Consultations 11/22/21 13:55 ED Decision to Admit Stat 11/22/21 14:18 Consult Orthopedic Surgery Routine 11/22/21 14:35 Consult Anesthesiology Routine Procedures Performed Operation Date: 11/23/21 09:20 Actual Procedures p Open Reduction Internal Fixation Intertrochanteric Hip Fracture Right(Right) - Christopher Neal DO Ordered Studies Cervical Spine CT 11/22/21 11:[address] DOSE: 661.61 mGycm HISTORY: Fall. Neck pain. TECHNIQUE: Multiaxial CT images of the cervical spine were performed and reformatted in the sagittal and coronal plane without the use of contrast. A dose lowering technique was utilized adhering to the principles of ALARA. COMPARISON: Cervical spine CT 11/26/2011. FINDINGS: No fractures. No subluxation. Prevertebral soft tissues and the C1-C2 interval are intact. No pneumothorax. Severe degenerative disc disease from C4 through C7. IMPRESSION: No fractures within the cervical spine. ACT 112: Negative or not required by law. Electronically signed by: Arthur Marshall M.D. 11/22/2021 12:40 PM Chest X-Ray 11/22/21 11:43 SINGLE VIEW CHEST CLINICAL HISTORY: Fall. Right hip fracture. Atypical chest pain. FINDINGS: An AP, portable, supine chest radiograph is compared to study dated 11/24/2011. The heart is mildly enlarged noting atherosclerotic calcification of the thoracic aorta. The pulmonary vasculature is noncongested. There is mild bibasilar scarring/atelectasis. No airspace consolidation or large pleural effusion is identified. No pneumothorax is seen. The skeletal structures are osteopenic. The bony thorax is grossly intact. IMPRESSION: Mild cardiomegaly with no acute cardiopulmonary abnormality identified. ACT 112: Negative or not required by law. Electronically signed by: Tio Hunt M.D. 11/22/2021 1:[address] 11/22/21 11:43 CT head/brain wo con CLINICAL HISTORY: 71 years-old Male with fall. Acute head trauma status post fall TECHNIQUE: Multiple axial CT images of the head were obtained without contrast. A dose lowering technique was utilized adhering to the principles of ALARA. CT DOSE: 823.94 mGycm COMPARISON: CT cervical spine of same day, head CT 06/30/2011 FINDINGS: No acute intracranial hemorrhage, midline shift, intracranial mass, hydrocephalus, territorial ischemia or abnormal extra-axial collection. Mild involutional changes. Senescent calcifications of the basal ganglia. The calvarium is intact. Trace right mastoid effusion. Left mastoid air cells are clear. Moderate mucosal thickening of the ethmoid air cells with mild mu cosal thickening of the right maxillary sinus. Unremarkable soft tissues and orbits. IMPRESSION: No acute intracranial abnormality or calvarial fracture. ACT 112: Negative or not required by law. The above report was generated using voice recognition software. It may contain grammatical, syntax or spelling errors. Electronically signed by: Connor Sweet M.D. 11/22/2021 12:32 PM Hip/Pelvis X-Ray 11/22/21 11:43 XR hip RT 2V w pelvis HISTORY: 71 years-old Male fall acute pelvic pain status post fall COMPARISON: None TECHNIQUE: Supine AP view of the pelvis with 2 views of the right hip FINDINGS: Moderate osteoarthritis of the hips. Limited exam secondary to positioning. There is an acute intertrochanteric fracture of the right proximal femur with fracture displacement/separation measuring up to approximately 6 mm. No dislocation or avascular necrosis. IMPRESSION: Acute nondisplaced intertrochanteric fracture of the right femur. ACT 112: Negative or not required by law. The above report was generated using voice recognition software. It may contain grammatical, syntax or spelling errors. Electronically signed by: Connor Sewet M.D. 11/22/2021 1:51 PM Hip X-Ray 11/23/21 00:00 FL hip RT 2-3V CLINICAL HISTORY: RT TROCH NAIL. Right hip fracture. COMPARISON STUDY: Right hip 11/22/2021. FLUOROSCOPY TIME: 46 seconds.. FINDINGS: 4 fluoroscopic spot images of the right hip demonstrate a right femoral intramedullary aimee within interlocking femoral neck pin transfixing the right intertrochanteric fracture. The hardware appears intact. Alignment is near-anatomic. IMPRESSION: Fluoroscopic assistance provided for internal fixation of a right intertrochanteric femoral fracture. ACT 112: Negative or not required by law. Electronically signed by: Arthur Marshall M.D. 11/23/2021 8:47 PM Diabetes Follow up a1c 5.7 on 11/23/21 Hospital Course (1) Fall: (2) Intertrochanteric fracture of right femur: (3) Essential hypertension: (4) Focal glomerular sclerosis: Plan This is a 71-year-old male who has a significant past medical history of HTN, HLD, prediabetes, GERD, focal segmental glomerular sclerosis, CKD stage III, hx of bullous pemphigus and anxiety who presents to ED after sustaining a fall at home. Patient was found to have a displaced intertrochanteric fracture of right femur. He was seen and evaluated by orthopedics and underwent a right hip ORIF by Dr. Neal on 11/23/2021. Postoperatively his course was complicated with hypoxia which has since resolved with incentive spirometry. He also developed acute blood loss anemia which is expected. His hemoglobin at discharge was 11.0. Patient's renal function remained stable during admission at 1.1. He was found to have low vitamin D and placed on supplementation. On day of discharge he was in good spirits and interested in being discharged to rehab. He denied any acute complaints and states physical therapy was going well with toe-touch weightbearing. He will continue all his current home medications and be placed on aspirin twice daily for DVT prophylaxis per orthopedics. He will continue this for likely 4 weeks, but will be discontinued at discretion of orthopedics. He will remain on toe-touch weightbearing to right lower extremity. He will follow-up with orthopedics as scheduled. He does have history of focal glomerular sclerosis and his creatinine remained stable. It is recommended the patient follow-up with nephrology as an outpatient. He feels pain is controlled. He is moving bowels and tolerating diet. His is hemodynamically stable. Total Time Total Time Spent Total Time Spent (In Minutes): 60 minutes Discharge Plan Discharge Items Patient Disposition: Transfer Inpatient Rehab Fac Reason For Visit: R HIP FX, FALL Discharge Diagnosis: Fall R displaced intertrochanteric femur fracture s/p ORIF on 11/23/[address] Neal Hypoxia - resolved Acute blood loss anemia HTN CKD-3 at baseline Activity: Per Instructions section Weightbearing: Right toe touch Weightbearing Comment: with walker or crutches Non-emergency contact: Surgeon Call non-emergency contact if: your pain is not controlled, your temperature is above 101.5, your wound has increased redness and your wound has increased drainage Follow-up/Referrals: Christopher Neal DO [Surgeon] - (Follow up with Dr Neal in 2 weeks from the day of your surgery for your first post operative visit.) Anibal Mckeon DO [Primary Care Provider] - Diet: Heart Healthy Diet Texture: Easy to Chew Addtl Attending Provider Instructions: MEDICATION CHANGES: Take Aspirin 81mg twice daily for dvt prophylaxis. Orthopedics will inform you when you can discontinue this therapy. Vitamin D2, 50,000 units, once weekly for 12 weeks for vitamin D deficiency. Miralax 17g once daily and Senna S 2 tablets at bed time is to help promote regular bowel movements after surgery. If you develop loose stool or diarrhea, please hold these medications. Oxycodone 5mg every 6 hours as needed for severe pain. Recommend Tylenol 650mg every 6 hours as needed for mild to moderate pain. RECOMMENDATIONS FOR FOLLOW-UP: Please follow up with your Primary Care Provider upon discharge from Rehab. Follow up with Orthopedics 10-14 days from surgery date. You or the rehab will need to call to schedule appointment. Please follow all orthopedic instructions as described below. Recommend repeat CBC, BMP in 3 days. Recommend repeat Vitamin D levels in 12 weeks. OTHER INSTRUCTIONS: Seek medical attention if you have: * temperature above 101 * chest pain or trouble breathing * abdominal pain, nausea, vomiting * diarrhea, dark stools or bloody stools * any unanswered questions or concerns Call 911 if symptoms are severe. Please take good care of yourself. It has been a pleasure taking care of you. Please take care of yourself. If you have any questions regarding your recent hospitalization please contact [facility] and request Carley Lin @ [phone]. H[employer]NA [employer] Provider Instructions: [facility] DISCHARGE INSTRUCTIONS: HIP FRACTURE SELF CARE INSTRUCTIONS: A. You are to ambulate with a walker or crutches for approximately 6 weeks. B. You are TOE TOUCH WEIGHT BEARING on your operative lower extremity for at least 6 weeks. C. Wear low heeled shoes with non-slip soles D. Be sure that your floors are free of things that could trip you throw rugs, electrical cords, and small objects. Avoid wet and waxed floors, especially with crutches/walker/cane. E. Try to walk several times a day with rest periods between. F. You may shower 48 hours after surgery and get the incision area wet, but DO NOT soak or submerge incision area in water. (No baths, swimming pools, hot tubs) G. You may have a large, band-aid like dressing over your incision (Aquacel). This will remain on your incision for 7 days, and then can be removed. You CAN shower with this on. If incision is leaking through the dressing, please call the office . H. Do NOT apply soap or any ointment/lotions directly over incision. I. You may use ice as needed to operative site. SPECIAL CARE INSTRUCTIONS: VERY IMPORTANT TO READ AND REVIEW A. You may be at risk for phlebitis or blood clots. a. Wear surgical stockings (REGI hose) for 2 weeks after surgery to improve circulation and reduce swelling. b. Take ASPIRIN 81mg orally once in the morning and once in the evening for 4 weeks or as directed. This is your blood thinner. B. There are a few signs you need to watch for after you are home. Call [facility] at [phone] if you experience any of the following: a. If you have a temperature of 101 degrees or higher. b. Sudden increase in pain in your hip not relieved by rest or pain medication. c. Any fluid or drainage from the incision; redness of the incision. d. Shortness of breath or chest pain. C. Call your physician if: a. Temperature is greater than 101 degrees (F). b. Pain is not relieved by prescribed pain medications. c. Increase drainage or redness from incision. d. Unanswered questions or concerns. D. Pain Medication: a. You will be prescribed pain medication upon discharge that should last till your first post-operative appointment. b. If you experience nausea and/or skin rash, discontinue this medication and contact our office for an alternative medication. c. Caution- narcotic pain medication can cause constipation. FOLLOW UP VISIT: Please call [facility] at [phone] to schedule a follow up appointment 10-14 days from the date of your surgery date. Pending Studies at Discharge: No Stand-Alone Forms: My [facility] mYwindow Skilled Items Patient informed of condition?: Yes DNR: No Discharge Level of Care: Acute rehab Communicable Disease: No Discharge Prognosis: Stable Lines: None Urinary Catheter: No Medications and DC Order Prescriptions: New aspirin 81 mg Tablet,Delayed Release (Dr/Ec) 81 mg PO BID Qty: 30 0RF oxycodone 5 mg Tablet 5 mg PO Q4H PRN (Reason: pain (scale score 7-10)) Qty: 30 0RF polyethylene glycol 3350 [Miralax] 17 gram Powder In Packet 17 g PO DAILY Qty: 30 0RF sennosides-docusate sodium [Senokot-S] 8.6-50 mg Tablet 2 tab PO HS Qty: 30 0RF Rx Instructions: hold for loose stools ergocalciferol (vitamin D2) 1,250 mcg (50,000 unit) Capsule 50,000 unit PO Sa@0900 84 Days Qty: 12 0RF Continued metoprolol succinate 100 mg tablet extended release 24 hr 100 mg PO HS sertraline 100 mg tablet 200 mg PO HS amlodipine 10 mg tablet 10 mg PO HS Discharge Orders: Discharge Order (Routine); Ordered 11/27/21 Ordered By: Nanette Florez Admission Data Admit Date/Time: 11/22/21 14:15 Attending Provider: Kevin Guadarrama Admit Provider: Carlos Alvarez Primary Care Provider: Anibal Mckeon Other Providers: Kami Bowles ; Carlos Alvarez ; Aaron Saha ; Jitendra Maynard ; Nanette Florez Supervising Physician Co-Signing Physician Notes Patient seen and examined by me, care coordinated with Essence Florez PA-C. Please refer to her note above for further detail. Patient presented after a fall, sustained right hip fracture, and underwent surgical repair. Continue aspirin twice a day for DVT prophylaxis. Follow-up with orthopedic surgeon, as above. Started on vitamin D supplement. Currently patient is feeling well, has some right thigh edema, which is expected postop, discharge exam as above. MD Chiara
[2021-11-27] MEDS: oxyCODONE HCL IR 5 MG TAB (IMMEDIATE RELEASE) PO PRN (14:24)
[2021-11-27 15:24] VITALS: BP 169/81; PULSE 62
== END 2021-11-27 15:51 | DRG 481 ==
LOC: ED 11:29 → 3W 14:15 → SUATTDRO 14:15 → 3W 16:34
DX: W10.8XXA Fall (on) (from) other stairs and steps, initial encounter; N18.30 Chronic kidney disease, stage 3 unspecified; E11.319 Type 2 diabetes mellitus with unspecified diabetic retinopathy without macular edema; F41.9 Anxiety disorder, unspecified; F17.290 Nicotine dependence, other tobacco product, uncomplicated; R09.02 Hypoxemia; I12.9 Hypertensive chronic kidney disease with stage 1 through stage 4 chronic kidney disease, or unspecified chronic kidney disease; S72.141A Displaced intertrochanteric fracture of right femur, initial encounter for closed fracture; E78.5 Hyperlipidemia, unspecified; K21.9 Gastro-esophageal reflux disease without esophagitis; S09.90XA Unspecified injury of head, initial encounter; Y92.018 Other place in single-family (private) house as the place of occurrence of the external cause; E67.3 Hypervitaminosis D; D62 Acute posthemorrhagic anemia